=== PATIENT | male | born 1980 | race Hispanic/Latino ===

== ENCOUNTER 2019-03-20 08:10 | Inpatient (IN) | payer BC, SELFPAY ==
[2019-03-20 08:11] VITALS: BMI 30.1
--- NOTE | 2019-03-20 08:30 | ED PDOC ---
Arrival/HPI - General Chief Complaint: Shortness Of Breath Time Seen by Provider: 03/20/19 08:14 - History of Present Illness Narrative History of Present Illness (Text): 03/20/19 08:25 39 m with hx fatty liver presents to the ED with chief complaint of shortness of breath. Dyspnea progressively worse over the past week, exacerbated with ambulation, no cough, no wheezing, +orthopnea. Patient reports intermittent chest pain but absent at this time. Patient also reports abdominal distension, no fever, no abdominal pain, no vomit, no constipation. Past Medical History - Provider Review Nursing Documentation Reviewed: Yes - Infectious Disease Hx of Infectious Diseases: None - Cardiac Hx Cardiac Disorders: Yes Hx Hypertension: Yes - Pulmonary Hx Respiratory Disorders: No - Neurological Hx Neurological Disorder: No - HEENT Hx HEENT Disorder: No - Renal Hx Renal Disorder: No - Endocrine/Metabolic Hx Endocrine Disorders: Yes Hx Diabetes Mellitus Type 2: Yes - Hematological/Oncological Hx Blood Disorders: No - Integumentary Hx Dermatological Disorder: No - Musculoskeletal/Rheumatological Hx Musculoskeletal Disorders: No - Gastrointestinal Hx Gastrointestinal Disorders: Yes Hx Fatty Liver Disease: Yes Hx Pancreatitis: Yes - Genitourinary/Gynecological Hx Genitourinary Disorders: No - Psychiatric Hx Psychophysiologic Disorder: No Hx Substance Use: No - Anesthesia Hx Anesthesia: No Hx Anesthesia Reactions: No Hx Malignant Hyperthermia: No Family/Social History - Physician Review Nursing Documentation Reviewed: Yes Family/Social History: Unknown Family HX Smoking Status: Current Some Days Smoker Hx Alcohol Use: Yes Frequency of alcohol use: Socially Hx Substance Use: No Allergies/Home Meds Allergies/Adverse Reactions: Allergies seasonal Allergy (Uncoded 03/20/19 08:12) RASH Home Medications: Home Meds Medication Instructions Recorded Confirmed Lisinopril [Zestril] 40 mg PO DAILY 03/20/19 03/20/19 MetFORMIN [glucOPHAGE] 1,000 mg PO BID 03/20/19 03/20/19 Omeprazole Magnesium [Prilosec Otc] 20 mg PO DAILY 03/20/19 03/20/19 Review of Systems - Physician Review All systems were reviewed & negative as marked: Yes - Review of Systems Constitutional: absent: Fevers Respiratory: SOB. absent: Cough, Wheezing Cardiovascular: CADE, Orthopnea. absent: Chest Pain (not presently) Gastrointestinal: absent: Abdominal Pain, Constipation, Diarrhea, Nausea, Vomiting, Hematochezia, Hematemesis Genitourinary Male: absent: Dysuria Neurological: absent: Headache, Dizziness, Disequilibrium Physical Exam - Physical Exam Narrative Physical Exam (Text): 03/20/19 08:28 Gen: VS reviewed, alert, well developed, well nourished, nontoxic, mild distress Eye: EOMI, PERRL Neck: no JVD, supple, no adenopathy CV: tachy, regular rhythm, no rubs,no murmur, S1, S2 Pulm: no distress, ?rales in the left lung base, no rhonchi, breath sounds equal Abd: soft, nontender, no guarding, no rebound, no rigidity, +distension, ?hepatomegaly Ext: +pitting edema in the bilateral lower extremities extending up to the thighs Skin: good color, no rash, no cyanosis Psych: responds appropriately to questions, normal affect Neuro: oriented x3, CN2-12 intact grossly, motor intact, sensation intact Vital Signs Temp Pulse Resp BP Pulse Ox 03/20/19 08:10 98.2 F 123 H 20 142/93 H 98 Finger Stick Blood Glucose: 130 Medical Decision Making ED Course and Treatment: 03/20/19 08:30 patient presents with dyspnea, orthopnea, CADE, peripheral edema and abdominal distension. will workup for chf. ddx including but not limited to cirrhosis of the liver, right heart faailure, pulm edema. 03/20/19 08:44 Sinus Tachy @ 122 bpm, nml qrs, nml axis, no acute sttw abn. 03/20/19 09:53 ciwa score at this time = 0 03/20/19 10:[address] garcia to the hospitalist service, patient to be admitted for presumed chf, possible alcoholic cardiomyopathy, at risk for alcohol withdrawal. 03/20/19 11:00 Chest X-ray -- No active disease - Critical Care Critical Care Minutes: 30 minutes - RAD Interpretation Radiology Orders: 03/20/19 08:24 CXR [CHEST TWO VIEWS (PA/LAT)] [RAD] Stat ABDOMEN COMPLETE [US] Stat 03/20/19 08:25 DUPLEX LOWER EXTRM VEIN BILAT [US] Stat Disposition/Present on Arrival - Present on Arrival Any Indicators Present on Arrival: No History of DVT/PE: No History of Uncontrolled Diabetes: No Urinary Catheter: No History of Decub. Ulcer: No History Surgical Site Infection Following: None - Disposition Have Diagnosis and Disposition been Completed?: Yes Diagnosis: Edema, Hypomagnesemia Disposition: HOSPITALIZED Disposition Time: 09:15 Patient Plan: Admission Patient Problems: Current Active Problems Problem Status Onset Edema Acute Hypomagnesemia Acute Condition: GUARDED
[2019-03-20 08:56] LABS: BASO # 0.06 K/mm3 (0.0-2.0); BASO % 0.8 % (0.0-3.0); EOS # 0.2 (0.0-0.7); EOS % 2.8 % (1.5-5.0); LYMPH # 1.7 (1.2-3.4); LYMPH % 22.7 % (22.0-35.0); MEAN CELL VOLUME 79.5 fl (80.0-105.0); MEAN CORPUSCULAR HEMOGLOBIN 24.3 pg (25.0-35.0); MEAN CORPUSCULAR HGB CONC 30.5 g/dl (31.0-37.0); MEAN PLATELET VOLUME 9.1 fl (7.0-11.0); MONO # 0.8 (0.1-0.6); MONO % 10.5 % (1.0-6.0); RBC 3.71 10^6/uL (3.5-6.1); RED CELL DISTRIBUTION WIDTH 15.2 % (11.5-14.5); WHITE BLOOD COUNT 7.5 10^3/uL (4.5-11.0)
[2019-03-20 09:01] LABS: INR 1.25; PARTIAL THROMBOPLASTIN TIME 31.1 Seconds (26.9-38.3); PROTHROMBIN TIME 14.1 SECONDS (9.4-12.5)
[2019-03-20 09:13] LABS: B-TYPE NATRIURETIC PEPTIDE 2060 pg/mL (0-450); TROPONIN I 0.04 ng/mL
[2019-03-20 09:18] LABS: ALB/GLOB RATIO 1.2 (1.1-1.8); ALBUMIN 3.2 g/dL (3.0-4.8); ALT/SGPT 137 U/L (7-56); AST/SGOT 93 U/L (17-59); BLOOD UREA NITROGEN 23 mg/dL (7-21); CALCIUM 6.9 mg/dL (8.4-10.5); GFR NON-AFRICAN AMERICAN > 60
[2019-03-20] MEDS ORDERED: Magnesium Sulfate 2 gm/50 ml 2 GM/50 ML BAG IVPB ONE ×2 (09:21→13:28)
--- NOTE | 2019-03-20 10:55 | RAD ---
Date of service: 03/20/2019 HISTORY: dyspnea, chf COMPARISON: No prior. TECHNIQUE: Chest PA and lateral views FINDINGS: LUNGS: No active pulmonary disease. PLEURA: No significant pleural effusion identified. No pneumothorax apparent. CARDIOVASCULAR: No aortic atherosclerotic calcification present. Mild cardiomegaly no pulmonary vascular congestion. OSSEOUS STRUCTURES: No significant abnormalities. VISUALIZED UPPER ABDOMEN: Normal. OTHER FINDINGS: None. IMPRESSION: No active disease.
[2019-03-20 11:04] LABS: BARBITURATES, UR NEGATIVE (NEGATIVE); BENZODIAZEPINES, UR NEGATIVE (NEGATIVE); OPIATES, UR NEGATIVE (NEGATIVE); PHENCYCLIDINE, UR NEGATIVE (NEGATIVE)
--- NOTE | 2019-03-20 12:03 | US ---
Date of service: 03/20/2019 HISTORY: abd distension COMPARISON: None. TECHNIQUE: Sonographic evaluation of the abdomen. FINDINGS: LIVER: Measures 22.6 cm. Patent portal and hepatic venous systems. Portal venous flow: Hepatopetal. echogenicity of the liver parenchyma. No mass. No intrahepatic bile duct dilatation. GALLBLADDER: Contracted gallbladder accentuating gallbladder wall thickness. Gallstones are not identified COMMON BILE DUCT: Measures 6.3 mm. No stones. No dilatation. PANCREAS: Unremarkable as visualized. No mass. No ductal dilatation. RIGHT KIDNEY: Measures 5.8 x 11.3cm. Normal echogenicity. No calculus, mass, or hydronephrosis. LEFT KIDNEY: Measures 7.4 x 13.9cm. Normal echogenicity. No calculus, mass, or hydronephrosis. SPLEEN: Normal in size and contour. No mass. AORTA: No aneurysmal dilatation. IVC: Unremarkable. OTHER FINDINGS: None. IMPRESSION: Hepatomegaly. No acute findings.
--- NOTE | 2019-03-20 12:19 | CARD ---
APPROVED REPORT Date of service: 03/20/2019 EKG Measurement Heart [id number] <Conclusion> Sinus tachycardia Possible Left atrial enlargement Low voltage QRS Septal infarct, age undetermined Abnormal ECG
[2019-03-20 13:33] LABS: IRON 23 ug/dL (45-180)
[2019-03-20 13:57] LABS: % IRON SATURATION 5 % (20-55); TOTAL IRON BINDING CAPACITY 484 ug/dL (261-462)
--- NOTE | 2019-03-20 14:29 | CP.PCM.HP ---
<Martínez Curry - Last Filed: 03/20/19 16:08> History of Present Illness - History of Present Illness History of Present Illness: History and Physical for Dr. Bob Hospitalist Service CC: SOB, fatigue HPI: 39 year old male with DM2, HTN, history of acute pancreatitis, hx of etoh abuse, and fatty liver who presented to [facility] ED complaining of shortness of breath and lower leg edema for the past week. He reports a two pillow orthopnea, shortness of breath worsened with exerction. He indicates that he has noticed some abdominal distenion. Patient reports he is compliant with his medication. Associated symptoms include lower extremity edema, weight gain and intermittent sharp shooting pains in his feet bilaterally. Patient does have history of heavy alcohol abuse. He indicates he has been able to control his drinking and that hi s last drink was five days prior to presentation. Review of labs does show an ETOH level of 34. He denies previous hospitalization for ETOH withdrawal or development of delerium tremens. He denies cough, productive cough, fever, nausea, vomiting, sharp stabbing chest pain, chest pressure, diarrhea, constipation, urinary complaints, neurological deficits. Patient denies black stools or bright red blood per rectum. ED Course: Patient evaluated with CXR showing no active disease, abominal US showing hepatomegaly, EKG showing sinus tachycardia, bloodwork indicating anemi a, hypomagnesium for which he was treated with 2gm MgSulfate, elevated BNP and given IV lasix 60mg with good urine output. PMH: DM2, HTN, Fatty Liver, Hx of Pancreatitis episode, Hx of ETOH abuse PSH: Denies SocHx: Tobacco: 0.5 PPD, ETOH: Active drinker, ID: Denies ALL: Seasonal, NKDA Meds: -Lisinopril 40mg daily -Metformin 1000mg BID Present on Admission - Present on Admission Any Indicators Present on Admission: No Review of Systems - Review of Systems All systems: reviewed and no additional remarkable complaints except (as mentioned in HPI) Past Patient History - Infectious Disease Hx of Infectious Diseases: None - Past Social History Smoking Status: Current Some Days Smoker - CARDIAC Hx Cardiac Disorders: Yes Hx Hypertension: Yes Hx Peripheral Edema: Yes (ble +2 pitting) - PULMONARY Hx Respiratory Disorders: No - NEUROLOGICAL Hx Neurological Disorder: No - HEENT Hx HEENT Problems: No - RENAL Hx Chronic Kidney Disease: No - ENDOCRINE/METABOLIC Hx Endocrine Disorders: Yes Hx Diabetes Mellitus Type 2: Yes (dx age 31) - HEMATOLOGICAL/ONCOLOGICAL Hx Blood Disorders: No - INTEGUMENTARY Hx Dermatological Problems: Yes Other/Comment: red raised itchy rash to abd x 2 days,multiple cuts, red thrasher, burn thrasher various stages 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, redness to both knees work related, red horizontal thrasher to bend in both ankles - MUSCULOSKELETAL/RHEUMATOLOGICAL Hx Musculoskeletal Disorders: No - GASTROINTESTINAL Hx Gastrointestinal Disorders: Yes (fatty liver, ulcerative colitis, obese) Hx Gastroesophageal Reflux: Yes Hx Pancreatitis: Yes - GENITOURINARY/GYNECOLOGICAL Hx Genitourinary Disorders: No - PSYCHIATRIC Hx Psychophysiologic Disorder: No - SURGICAL HISTORY Hx Surgeries: No - ANESTHESIA Hx Anesthesia: No Hx Anesthesia Reactions: No Hx Malignant Hyperthermia: No Meds Allergies/Adverse Reactions: Allergies Allergy/AdvReac Type Severity Reaction Status Date / Time seasonal Allergy RASH Uncoded 03/20/19 08:12 Physical Exam - Constitutional Appears: Non-toxic - Head Exam Head Exam: ATRAUMATIC, NORMAL INSPECTION, NORMOCEPHALIC - Eye Exam Eye Exam: EOMI, PERRL - ENT Exam ENT Exam: Mucous Membranes Moist - Neck Exam Neck exam: Positive for: Full Rom - Respiratory Exam Respiratory Exam: Clear to Auscultation Bilateral, NORMAL BREATHING PATTERN. absent: Rales, Rhonchi, Wheezes - Cardiovascular Exam Cardiovascular Exam: Tachycardia, REGULAR RHYTHM, +S1, +S2 - GI/Abdominal Exam GI & Abdominal Exam: Distended (absent fluid wave), Organomegaly (hepatomegaly ), Soft. absent: Guarding, Hernia, Rigid, Tenderness Additional comments: stretch thrasher bilateerally on lower right and left quadrant, presence of red urticaria rash, absent caput medusa, fluid wave, telangiaectasias - Extremities Exam Extremities exam: Positive for: pedal edema (+2 to thighs biltaerally ) - Neurological Exam Neurological exam: Alert, CN II-XII Intact, Normal Gait, Oriented x3, Reflexes Normal Additional comments: motor and sensory grossly intact - Psychiatric Exam Psychiatric exam: Normal Affect, Normal Mood - Skin Skin Exam: Dry, Intact, Rash, Urticaria (abdomen ) Results - Vital Signs Recent Vital Signs: Last Vital Signs Temp 98.2 F 03/20/19 08:10 Pulse 121 H 03/20/19 10:59 Resp 18 03/20/19 10:59 BP 135/91 H 03/20/19 10:59 Pulse Ox 100 03/20/19 10:59 - Labs Result Diagrams: 03/20/19 08:30 03/20/19 08:30 Labs: Laboratory Results - last 24 hr 03/20/19 03/20/19 03/20/19 08:14 08:30 08:30 WBC RBC Hgb Hct MCV MCH MCHC RDW Plt Count MPV Neut % (Auto) Lymph % (Auto) Hodgeman % (Auto) Eos % (Auto) Baso % (Auto) Lymph # (Auto) Hodgeman # (Auto) Eos # (Auto) Baso # (Auto) Absolute Neuts (auto) PT INR APTT Sodium 138 Potassium 4.4 Chloride 106 Carbon Dioxide 20 L Anion Gap 16 BUN 23 H Creatinine 1.1 Est GFR ( Amer) > 60 Est GFR (Non-Af Amer) > 60 POC Glucose (mg/dL) 130 H Random Glucose 133 H Calcium 6.9 L* Phosphorus Magnesium 0.7 L* Iron TIBC % Saturation Total Bilirubin 0.3 AST 93 H ALT 137 H Alkaline Phosphatase 144 H Troponin I 0.04 NT-Pro-B Natriuret Pep 2060 H Total Protein 5.7 L Albumin 3.2 Globulin 2.6 Albumin/Globulin Ratio 1.2 TSH 3rd Generation 1.65 Urine Opiates Screen Urine Methadone Screen Ur Barbiturates Screen Ur Phencyclidine Scrn Ur Amphetamines Screen U Benzodiazepines Scrn U Oth Cocaine Metabols U Cannabinoids Screen Alcohol, Quantitative 32 H 03/20/19 03/20/19 03/20/19 08:30 08:30 08:36 WBC 7.5 RBC 3.71 Hgb 9.0 L Hct 29.5 L MCV 79.5 L MCH 24.3 L MCHC 30.5 L RDW 15.2 H Plt Count 349 MPV 9.1 Neut % (Auto) 63.2 Lymph % (Auto) 22.7 Hodgeman % (Auto) 10.5 H Eos % (Auto) 2.8 Baso % (Auto) 0.8 Lymph # (Auto) 1.7 Hodgeman # (Auto) 0.8 H Eos # (Auto) 0.2 Baso # (Auto) 0.06 Absolute Neuts (auto) 4.71 PT 14.1 H INR 1.25 APTT 31.1 Sodium Potassium Chloride Carbon Dioxide Anion Gap BUN Creatinine Est GFR ( Amer) Est GFR (Non-Af Amer) POC Glucose (mg/dL) Random Glucose Calcium Phosphorus Magnesium Iron TIBC % Saturation Total Bilirubin AST ALT Alkaline Phosphatase Troponin I NT-Pro-B Natriuret Pep Total Protein Albumin Globulin Albumin/Globulin Ratio TSH 3rd Generation Urine Opiates Screen Negative Urine Methadone Screen Negative Ur Barbiturates Screen Negative Ur Phencyclidine Scrn Negative Ur Amphetamines Screen Negative U Benzodiazepines Scrn Negative U Oth Cocaine Metabols Negative U Cannabinoids Screen Positive H Alcohol, Quantitative 03/20/19 03/20/19 03/20/19 09:23 12:30 12:30 WBC RBC Hgb Hct MCV MCH MCHC RDW Plt Count MPV Neut % (Auto) Lymph % (Auto) Hodgeman % (Auto) Eos % (Auto) Baso % (Auto) Lymph # (Auto) Hodgeman # (Auto) Eos # (Auto) Baso # (Auto) Absolute Neuts (auto) PT INR APTT Sodium Potassium Chloride Carbon Dioxide Anion Gap BUN Creatinine Est GFR ( Amer) Est GFR (Non-Af Amer) POC Glucose (mg/dL) Random Glucose Calcium Phosphorus 5.1 H 5.1 H Magnesium 1.0 L* Iron 23 L TIBC 484 H % Saturation 5 L Total Bilirubin AST ALT Alkaline Phosphatase Troponin I NT-Pro-B Natriuret Pep Total Protein Albumin Globulin Albumin/Globulin Ratio TSH 3rd Generation Urine Opiates Screen Urine Methadone Screen Ur Barbiturates Screen Ur Phencyclidine Scrn Ur Amphetamines Screen U Benzodiazepines Scrn U Oth Cocaine Metabols U Cannabinoids Screen Alcohol, Quantitative 03/20/19 12:57 WBC RBC Hgb Hct MCV MCH MCHC RDW Plt Count MPV Neut % (Auto) Lymph % (Auto) Hodgeman % (Auto) Eos % (Auto) Baso % (Auto) Lymph # (Auto) Hodgeman # (Auto) Eos # (Auto) Baso # (Auto) Absolute Neuts (auto) PT INR APTT Sodium Potassium Chloride Carbon Dioxide Anion Gap BUN Creatinine Est GFR ( Amer) Est GFR (Non-Af Amer) POC Glucose (mg/dL) 141 H Random Glucose Calcium Phosphorus Magnesium Iron TIBC % Saturation Total Bilirubin AST ALT Alkaline Phosphatase Troponin I NT-Pro-B Natriuret Pep Total Protein Albumin Globulin Albumin/Globulin Ratio TSH 3rd Generation Urine Opiates Screen Urine Methadone Screen Ur Barbiturates Screen Ur Phencyclidine Scrn Ur Amphetamines Screen U Benzodiazepines Scrn U Oth Cocaine Metabols U Cannabinoids Screen Alcohol, Quantitative Assessment & Plan - Assessment and Plan (Free Text) Assessment: 39 year old male with DM2, HTN, history of acute pancreatitis, hx of etoh abuse, and fatty liver who presented to [facility] ED complaining of shortness of breath and lower leg edema for the past week. Patient to be admitted for ?CHF exacerbation and suspected alcohol withdrawal.Patient to be monitored and treated with IV lasix for diuresis. Cardiology to be consulted, will follow up recs. 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 ischemic disease vs. CHF vs. symptomatic anemia vs. - BNP elevated, CXR showing mild cardiomegaly without significant effusion, EKG sinus tachycardia without ST elevation/depression - Echocardiogram pending, Trending troponins - Cardiology consulted, appreciate recommendations - IV lasix 60mg given in ED, Start IV lasix 40mg Daily tomorrow AM - Monitor I/O, Daily weights Elevated ETOH with concern for etoh withdrawal - ETOH on blood work shown to be 34 - Slight tremors of the hand noted on exam - CIWA, Ativan 1mg IVP Q6H prn Anemia, Microcytic - Etiology Likely secondary to anemia of chronic disease vs. iron deficiency anemia - Monitor H/H with routine CBC - Iron panel, VB12, Folate Hypomagnesium - Etiology: Alcohol abuse vs. chronic pancreatitis vs. IBD vs. hyperthyroidism vs. hyperaldo - Magnesium sulfate 2gm given in ED - Repeat level Hypocalcemia - Corrected calcium is 7.5 - Continue to monitor GI/DVT PPX - Pepcid - Heparin Patient seen, case and plan discussed with attending, Dr. Bob <Misael Bob - Last Filed: 03/20/19 16:35> Results - Vital Signs Recent Vital Signs: Last Vital Signs Temp 98.2 F 03/20/19 08:10 Pulse 121 H 03/20/19 14:05 Resp 20 03/20/19 14:05 BP 135/91 H 03/20/19 10:59 Pulse Ox 100 03/20/19 10:59 - Labs Result Diagrams: 03/20/19 08:30 03/20/19 08:30 Labs: Laboratory Results - last 24 hr 03/20/19 03/20/19 03/20/19 08:14 08:30 08:30 WBC RBC Hgb Hct MCV MCH MCHC RDW Plt Count MPV Neut % (Auto) Lymph % (Auto) Hodgeman % (Auto) Eos % (Auto) Baso % (Auto) Lymph # (Auto) Hodgeman # (Auto) Eos # (Auto) Baso # (Auto) Absolute Neuts (auto) PT INR APTT Sodium 138 Potassium 4.4 Chloride 106 Carbon Dioxide 20 L Anion Gap 16 BUN 23 H Creatinine 1.1 Est GFR ( Amer) > 60 Est GFR (Non-Af Amer) > 60 POC Glucose (mg/dL) 130 H Random Glucose 133 H Calcium 6.9 L* Phosphorus Magnesium 0.7 L* Iron TIBC % Saturation Total Bilirubin 0.3 AST 93 H ALT 137 H Alkaline Phosphatase 144 H Troponin I 0.04 NT-Pro-B Natriuret Pep 2060 H Total Protein 5.7 L Albumin 3.2 Globulin 2.6 Albumin/Globulin Ratio 1.2 TSH 3rd Generation 1.65 Urine Opiates Screen Urine Methadone Screen Ur Barbiturates Screen Ur Phencyclidine Scrn Ur Amphetamines Screen U Benzodiazepines Scrn U Oth Cocaine Metabols U Cannabinoids Screen Alcohol, Quantitative 32 H 03/20/19 03/20/19 03/20/19 08:30 08:30 08:36 WBC 7.5 RBC 3.71 Hgb 9.0 L Hct 29.5 L MCV 79.5 L MCH 24.3 L MCHC 30.5 L RDW 15.2 H Plt Count 349 MPV 9.1 Neut % (Auto) 63.2 Lymph % (Auto) 22.7 Hodgeman % (Auto) 10.5 H Eos % (Auto) 2.8 Baso % (Auto) 0.8 Lymph # (Auto) 1.7 Hodgeman # (Auto) 0.8 H Eos # (Auto) 0.2 Baso # (Auto) 0.06 Absolute Neuts (auto) 4.71 PT 14.1 H INR 1.25 APTT 31.1 Sodium Potassium Chloride Carbon Dioxide Anion Gap BUN Creatinine Est GFR ( Amer) Est GFR (Non-Af Amer) POC Glucose (mg/dL) Random Glucose Calcium Phosphorus Magnesium Iron TIBC % Saturation Total Bilirubin AST ALT Alkaline Phosphatase Troponin I NT-Pro-B Natriuret Pep Total Protein Albumin Globulin Albumin/Globulin Ratio TSH 3rd Generation Urine Opiates Screen Negative Urine Methadone Screen Negative Ur Barbiturates Screen Negative Ur Phencyclidine Scrn Negative Ur Amphetamines Screen Negative U Benzodiazepines Scrn Negative U Oth Cocaine Metabols Negative U Cannabinoids Screen Positive H Alcohol, Quantitative 03/20/19 03/20/19 03/20/19 09:23 12:30 12:30 WBC RBC Hgb Hct MCV MCH MCHC RDW Plt Count MPV Neut % (Auto) Lymph % (Auto) Hodgeman % (Auto) Eos % (Auto) Baso % (Auto) Lymph # (Auto) Hodgeman # (Auto) Eos # (Auto) Baso # (Auto) Absolute Neuts (auto) PT INR APTT Sodium Potassium Chloride Carbon Dioxide Anion Gap BUN Creatinine Est GFR ( Amer) Est GFR (Non-Af Amer) POC Glucose (mg/dL) Random Glucose Calcium Phosphorus 5.1 H 5.1 H Magnesium 1.0 L* Iron 23 L TIBC 484 H % Saturation 5 L Total Bilirubin AST ALT Alkaline Phosphatase Troponin I NT-Pro-B Natriuret Pep Total Protein Albumin Globulin Albumin/Globulin Ratio TSH 3rd Generation Urine Opiates Screen Urine Methadone Screen Ur Barbiturates Screen Ur Phencyclidine Scrn Ur Amphetamines Screen U Benzodiazepines Scrn U Oth Cocaine Metabols U Cannabinoids Screen Alcohol, Quantitative 03/20/19 03/20/19 12:57 14:00 WBC RBC Hgb Hct MCV MCH MCHC RDW Plt Count MPV Neut % (Auto) Lymph % (Auto) Hodgeman % (Auto) Eos % (Auto) Baso % (Auto) Lymph # (Auto) Hodgeman # (Auto) Eos # (Auto) Baso # (Auto) Absolute Neuts (auto) PT INR APTT Sodium Potassium Chloride Carbon Dioxide Anion Gap BUN Creatinine Est GFR ( Amer) Est GFR (Non-Af Amer) POC Glucose (mg/dL) 141 H Random Glucose Calcium Phosphorus Magnesium Iron TIBC % Saturation Total Bilirubin AST ALT Alkaline Phosphatase Troponin I 0.03 D NT-Pro-B Natriuret Pep Total Protein Albumin Globulin Albumin/Globulin Ratio TSH 3rd Generation Urine Opiates Screen Urine Methadone Screen Ur Barbiturates Screen Ur Phencyclidine Scrn Ur Amphetamines Screen U Benzodiazepines Scrn U Oth Cocaine Metabols U Cannabinoids Screen Alcohol, Quantitative Attending/Attestation - Attestation I have personally seen and examined this patient.: Yes I have fully participated in the care of the patient.: Yes I have reviewed all pertinent clinical information: Yes Notes (Text): 03/20/19 39 year old female male with past medical history of alcohol abuse, diabetes, and hypertension who presents with complaint of shortness of breath, orthopnea and lower extremity edema. Found to have elevated pbnp and mild cardiomegaly on chest xray. Will start on iv lasix and obtain echocardiogram. Cardiology eval uation is requested. Counselled on alcohol cessation. Continue with multivitamin, folic acid and thiamine. Ativan prn in case of withdrawal symptoms. Elevated LFTs likely secondary to ETOH abuse and fatty liver. Continue to monitor closely. Anemia workup ordered for anemia. Will replete and repeat magnesium. Misael Bob MD Hospitalist.
[2019-03-20] MEDS ORDERED: Pneumococcal 23-Valent Vaccine IM ONE (14:30)
[2019-03-20 17:16] LABS: FERRITIN 12.3 ng/mL
[2019-03-20] MEDS: Insulin Lispro (humaLOG) LOW Coverage SC SCH ×2 (17:32→22:36)
--- NOTE | 2019-03-20 17:45 | CARD ---
APPROVED REPORT Date of service: 03/20/2019 EXAM: Two-dimensional and M-mode echocardiogram with Doppler and color Doppler. INDICATION Cardiomyopathy Congestive Heart Failure 2D DIMENSIONS Left Atrium (2D)5.0 (1.6-4.0cm)IVSd1.3 (0.7-1.1cm) LVDd5.6 (3.9-5.9cm)PWd1.4 (0.7-1.1cm) LVDs5.1 (2.5-4.0cm)FS (%) 9.4 % LVEF (%)20.6 (>50%) M-Mode DIMENSIONS Aortic Root3.30 (2.2-3.7cm)Aortic Cusp Exc.1.80 (1.5-2.0cm) Aortic Valve AoV Peak Cfqeypgn094.0cm/Jayden Peak GR.9mmHg Mitral Valve E/A ratio0.0 TDI E/Lateral E'0.0E/Medial E'0.0 Pulmonary Valve PV Peak Wefqmrga63.3cm/sPV Peak Grad.1mmHg Tricuspid Valve TR Peak [id number] [id number] Peak Gr.29mmHg [id number] LEFT VENTRICLE The Left Ventricle is mildly dilated. There is mild concentric left ventricular hypertrophy. The ejection fraction is severely impaired. There is global hypokinesis of the left ventricle. RIGHT VENTRICLE The right ventricle is moderately dilated. Systolic function is severely reduced. ATRIA The left atrium is severely dilated. The right atrium is moderately dilated. The interatrial septum is intact with no evidence for an atrial septal defect. AORTIC VALVE The aortic valve is normal in structure. No aortic regurgitation is present. There is no aortic valvular stenosis. MITRAL VALVE The reduced mitral leaflet separation suggests decreased flow through the mitral valve and poor cardiac output. Mitral regurgitation is mild. TRICUSPID VALVE The tricuspid valve is normal in structure. The tricuspid valve is normal in structure. There is mild tricuspid regurgitation. PULMONIC VALVE The pulmonary valve is normal in structure. GREAT VESSELS The aortic root is normal in size. The IVC is normal in size and collapses >50% with inspiration. PERICARDIAL EFFUSION There is no pleural effusion. There is a small pericardial effusion. <Conclusion> Four chamber enlargement. Mild concentric LVH. Severe global LV hypokinesis. Overall EF 15-20%. Mild mitral and tricuspid regurgitation. Small pericardial effusion noted.
[2019-03-20 17:46] LABS: FOLATE 14.4 ng/mL
[2019-03-21 06:53] LABS: BASO # 0.05 K/mm3 (0.0-2.0); BASO % 0.7 % (0.0-3.0); EOS # 0.2 (0.0-0.7); EOS % 2.5 % (1.5-5.0); HEMOGLOBIN 9.5 g/dL (14.0-18.0); LYMPH # 1.7 (1.2-3.4); LYMPH % 22.1 % (22.0-35.0); MEAN CELL VOLUME 79.8 fl (80.0-105.0); MEAN CORPUSCULAR HEMOGLOBIN 23.9 pg (25.0-35.0); MEAN PLATELET VOLUME 9.5 fl (7.0-11.0); MONO # 0.8 (0.1-0.6); MONO % 9.8 % (1.0-6.0); RBC 3.97 10^6/uL (3.5-6.1); RED CELL DISTRIBUTION WIDTH 15.2 % (11.5-14.5); WHITE BLOOD COUNT 7.7 10^3/uL (4.5-11.0)
[2019-03-21 07:15] LABS: ALB/GLOB RATIO 1.3 (1.1-1.8); ALBUMIN 3.3 g/dL (3.0-4.8); ALT/SGPT 134 U/L (7-56); AST/SGOT 96 U/L (17-59); BLOOD UREA NITROGEN 28 mg/dL (7-21); CALCIUM 7.4 mg/dL (8.4-10.5); GFR NON-AFRICAN AMERICAN > 60; HDL CHOLESTEROL 23 mg/dL (29-60); LDL CHOLESTEROL 81 mg/dL (0-129)
[2019-03-21] MEDS: Insulin Lispro (humaLOG) LOW Coverage SC SCH ×4 (08:37→23:14)
[2019-03-21] MEDS: Multivitamin With Minerals Tab PO SCH (08:37)
--- NOTE | 2019-03-21 08:57 | CP.PCM.PN ---
<Lina Rivera - Last Filed: 03/21/19 14:10> Subjective - Date & Time of Evaluation Date of Evaluation: 03/21/19 Time of Evaluation: 08:55 - Subjective Subjective: Lina Rivera, PGY-1, Internal Medicine Progress Note for Dr. Bob Patient seen and evaluated at bedside. Patient had no acute overnight events. Patient reports improved shortness of breath, abdominal distension, and bilateral lower extremity edema. 12-point ROS was unremarkable except for what was mentioned above. Objective - Vital Signs/Intake and Output Vital Signs (last 24 hours): Temp Pulse Resp BP Pulse Ox 98.1 F 109 H 22 127/90 100 03/21/19 06:00 03/21/19 06:00 03/21/19 06:00 03/21/19 06:00 03/21/19 06:00 Intake and Output: 03/21/19 03/21/19 06:59 18:59 Intake Total 956 Balance 956 - Medications Medications: Current Medications Carvedilol (Coreg) 6.25 mg PO BID [facility] Enoxaparin Sodium (Lovenox) 40 mg SC DAILY [facility]; Protocol Famotidine (Pepcid) 20 mg PO 1000,2200 [facility] Last Admin: 03/20/19 22:38 Dose: 20 mg Ferrous Sulfate (Feosol) 324 mg PO TID [facility] Folic Acid (Folic Acid) 1 mg PO DAILY [facility] Furosemide (Lasix) 40 mg IVP DAILY [facility] Insulin Human Lispro (Humalog Low) 0 units SC ACHS [facility]; Protocol Last Admin: 03/21/19 08:37 Dose: 1 units Lisinopril (Zestril) 5 mg PO DAILY [facility] Lorazepam (Ativan) 1 mg IVP Q4H PRN; Protocol PRN Reason: Anxiety Last Admin: 03/20/19 22:38 Dose: 1 mg Magnesium Oxide (Mag-Ox) 400 mg PO BID [facility] Stop: 03/21/19 18:01 Multivitamins/Minerals (Therapeutic-M Tab) 1 tab PO 0800 [facility] Last Admin: 03/21/19 08:37 Dose: 1 tab Nicotine (Nicoderm Cq) 1 patch TD DAILY [facility] Last Admin: 03/20/19 15:02 Dose: 1 patch Thiamine HCl (Vitamin B1 Tab) 100 mg PO DAILY [facility] - Labs Labs: 03/21/19 06:20 03/21/19 06:20 PT 14.1 SECONDS (9.4-12.5) H 03/20/19 08:30 INR 1.25 03/20/19 08:30 APTT 31.1 Seconds (26.9-38.3) 03/20/19 08:30 - Constitutional Appears: Well, Non-toxic, No Acute Distress - Head Exam Head Exam: ATRAUMATIC, NORMAL INSPECTION, NORMOCEPHALIC - Eye Exam Eye Exam: EOMI, PERRL - ENT Exam ENT Exam: Mucous Membranes Moist - Respiratory Exam Respiratory Exam: Wheezes (mild) Additional comments: distant breath sounds - GI/Abdominal Exam GI & Abdominal Exam: Distended, Soft, Normal Bowel Sounds. absent: Firm, Guarding, Rigid, Tenderness - Extremities Exam Extremities Exam: Full ROM, Normal Capillary Refill, Normal Inspection. absent: Pedal Edema - Neurological Exam Neurological Exam: Alert, Awake, CN II-XII Intact, Oriented x3 - Psychiatric Exam Psychiatric exam: Normal Affect, Normal Mood - Skin Skin Exam: Dry, Intact Additional comments: full body rash Assessment and Plan - Assessment and Plan (Free Text) Assessment: 39 year old male with past medical history diabetes mellitus type II, hypertension, history of acute pancreatitis, history of alcohol abuse, and fatty liver presented with shortness of breath and lower extremity edema for one week. Patient was admitted for congestive heart failure and suspected alcohol withdrawal. Patient was diuresed in the emergency department with improvement in symptoms Plan: Systolic Congestive Heart Failure Exacerbation -Echocardiogram 03/20: LVEF 15-20%, global LV hypokinesis, mild concentric LVH, small pericardial effusion -Currently has no chest pain at this time, so will not start NSAID for pericardial effusion -Elevated BNP on admission with CXR showing mild cardiomegaly without significant effusion -Tropx3: <0.05 -Started coreg 6.25 mg BID, zestril 5 mg daily, and spirinolactone 25 mg BID -Increased lasix to 40 mg BID IV -Daily weight -Monitor I and Os Sinus tachycardia -Confirmed by EKG on admission -Continue coreg 6.25 mg BID Alcohol abuse with concern for alcohol withdrawal -Alc level: 32 on admission -CIWA protocol initiated -CIWAs have been 0-1 today -Continue ativan 1 mg Q4 PRN for withdrawal symptoms -Continue with MVI, thiamine, and folate Type II Diabetes -HgbA1c: 10.1 -Continue with low SSI -Accuchecks ACHS Microcytic anemia -Iron studies show low % saturation, thus indicating iron deficiency anemia. -Patient reports having bloody bowel movements in the past -Started patient on ferrous sulfate 324 mg TID -Patient will follow up outpatient for endoscopy with Dr. Palafox Hypomagnesia -Replete as needed Hyperkalemia -Mild at this time -Will continue to monitor Hypocalcemia -Replete as necessary Tobacco abuse -Continue with nicotine patch Elevated LFTs -Will evaluate with abdominal ultrasound for changes in the liver. GI prophylaxis: pepcid 20 mg BID DVT prophylaxis: lovenox 40 mg Patient plan discussed with Dr. Bob. <Misael Bob - Last Filed: 03/21/19 15:04> Objective - Vital Signs/Intake and Output Vital Signs (last 24 hours): Temp Pulse Resp BP Pulse Ox 97.1 F L 102 H 19 126/88 100 03/21/19 12:00 03/21/19 12:00 03/21/19 12:00 03/21/19 12:00 03/21/19 06:00 Intake and Output: 03/21/19 03/21/19 06:59 18:59 Intake Total 956 Balance 956 - Medications Medications: Current Medications Carvedilol (Coreg) 6.25 mg PO BID [facility] Last Admin: 03/21/19 10:34 Dose: 6.25 mg Enoxaparin Sodium (Lovenox) 40 mg SC DAILY [facility]; Protocol Last Admin: 03/21/19 10:37 Dose: 40 mg Famotidine (Pepcid) 20 mg PO 1000,2200 [facility] Last Admin: 03/21/19 10:37 Dose: 20 mg Ferrous Sulfate (Feosol) 324 mg PO TID [facility] Last Admin: 03/21/19 13:10 Dose: 324 mg Folic Acid (Folic Acid) 1 mg PO DAILY [facility] Last Admin: 03/21/19 10:37 Dose: 1 mg Furosemide (Lasix) 40 mg IVP BID [facility] Insulin Human Lispro (Humalog Low) 0 units SC ACHS [facility]; Protocol Last Admin: 03/21/19 12:42 Dose: 3 units Lisinopril (Zestril) 5 mg PO DAILY [facility] Last Admin: 05/10/19 10:35 Dose: 5 mg Lorazepam (Ativan) 1 mg IVP Q4H PRN; Protocol PRN Reason: Anxiety Last Admin: 03/20/19 22:38 Dose: 1 mg Magnesium Oxide (Mag-Ox) 400 mg PO BID [facility] Stop: 03/21/19 18:01 Last Admin: 03/21/19 10:37 Dose: 400 mg Multivitamins/Minerals (Therapeutic-M Tab) 1 tab PO 0800 [facility] Last Admin: 03/21/19 08:37 Dose: 1 tab Nicotine (Nicoderm Cq) 1 patch TD DAILY [facility] Last Admin: 03/21/19 10:36 Dose: 1 patch Spironolactone (Aldactone) 25 mg PO BID [facility] Thiamine HCl (Vitamin B1 Tab) 100 mg PO DAILY [facility] Last Admin: 03/21/19 10:37 Dose: 100 mg - Labs Labs: 03/21/19 06:20 03/21/19 14:30 PT 14.1 SECONDS (9.4-12.5) H 03/20/19 08:30 INR 1.25 03/20/19 08:30 APTT 31.1 Seconds (26.9-38.3) 03/20/19 08:30 Attending/Attestation - Attestation I have personally seen and examined this patient.: Yes I have fully participated in the care of the patient.: Yes I have reviewed all pertinent clinical information, including history, physical exam and plan: Yes Notes (Text): 03/21/19 14:59 39 year old female male with past medical history of alcohol abuse, diabetes, and hypertension who presented with complaint of shortness of breath, orthopnea and lower extremity edema. Found to have elevated pbnp and mild cardiomegaly on chest xray. Started on iv lasix and metoprolol. Echocardiogram was reviewed which showed 15-20% EF, global LV hypokinesis. Cardiology is following and has increased lasix to bid and added spironalactone. Plan for possible cath next week as per cardiology. Counselled on alcohol cessation. Continue with multivitamin, folic acid and thiamine. Ativan prn in case of withdrawal symptoms. Elevated LFTs likely secondary to ETOH abuse and fatty liver. Continue to monitor closely. Anemia workup consistent with iron deficiency anemia. He has outpatient GI follow up for EGD/colonoscopy. A1c is 10.1. Will discuss with patient regarding starting insulin regimen. Will replete and repeat magnesium. Misael Bob MD Hospitalist.
[2019-03-21] MEDS: Enoxaparin 40 mg Syringe SC SCH (10:37)
[2019-03-21] MEDS: Magnesium Oxide 400 mg Tab UD PO SCH ×2 (10:37→17:59)
[2019-03-21 14:47] LABS: BLOOD UREA NITROGEN 27 mg/dL (7-21); CALCIUM 7.6 mg/dL (8.4-10.5); GFR NON-AFRICAN AMERICAN > 60
[2019-03-21] MEDS: Insulin Lispro 1 UNITS/0.01 ML SC SCH (19:07)
--- NOTE | 2019-03-21 21:39 | CON ---
DATE: 03/21/2019 REQUESTING PHYSICIAN: Dr. Bob. REASON FOR CONSULTATION; Congestive heart failure. HISTORY OF PRESENT ILLNESS: This is a 39-year-old man with a longstanding history of alcohol and tobacco abuse, who presented to the emergency room with complaints of worsening dyspnea and leg edema for over a week. He has been a heavy drinker for many years and had stopped drinking several days prior to admission. Despite this, his alcohol level was 34 on admission. He has been bothered by cough, but he felt it was congestion. He was seen by physician on the outside and given dilator and antibiotics with no significant improvement. Upon admission, he had evidence of congestive heart failure. He does have a history of hypertension and longstanding diabetes mellitus. He was admitted in the past for acute alcoholic pancreatitis. Upon admission, he was noted to be anemic as well as severely hypomagnesemic. He has had prior workup that showed evidence of a fatty liver. CURRENT MEDICATIONS: Include Ativan p.r.n., carvedilol 6.25 mg b.i.d., ferrous sulfate, folic acid, Lasix 40 mg IV daily, Lovenox, magnesium oxide, Nicoderm patch, Pepcid, and Zestril 5 mg everyday. ALLERGIES: NO DRUG ALLERGIES NOTED. FAMILY HISTORY: Unremarkable for premature heart disease. SOCIAL HISTORY: He is a smoker of at least half pack per day as well as heavy alcohol use, although he states this is less than in the past. REVIEW OF SYSTEMS: A 12-point review of systems is notable for the problems mentioned above. 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 He denies any PND, but has had some orthopnea lately. PHYSICAL EXAMINATION: GENERAL: He is a middle-aged male, who appears comfortable at rest. VITAL SIGNS: Blood pressure is 132/96 with a pulse of 120, respirations are 14, and he is afebrile. HEENT: Normocephalic and atraumatic. NECK: Supple. JVD is present at 60 degrees. Carotid upstrokes 1+ bilaterally. CHEST: Reveals bilateral scattered rhonchi with diminished breath sounds at the bases. HEART: PMI displaced laterally with soft tones noted. ABDOMEN: Soft and protuberant. Liver edge is palpable and feels hard. EXTREMITIES: A 2+ edema to his knees. SKIN: Warm and dry. PSYCHIATRIC: Feels mildly anxious, but otherwise normal in affect. NEUROLOGIC: Alert and oriented x3. No gross motor or sensory deficits notable. DIAGNOSTIC DATA: Potassium 5.2, BUN and creatinine 28 and 1.1. White count of 7.7, hemoglobin and hematocrit 9.5 and 31.7 with a platelet count of 354,000, and MCV is 79.8. Magnesium level is 1.3 and had been 0.7 upon admission. Glucose is 177. BNP is 2060. AST and ALT is 93 and 137. Troponin has been negative. Cholesterol is 111 with an HDL of 23 and LDL of 81. B12 and folate levels are normal. Urine was positive for cannabinoids as well. Electrocardiogram reveals sinus tachycardia with possible left atrial abnormality, low voltage QRS complex as well as possible prior septal infarct pattern. His echocardiogram was reviewed and this revealed 4-chamber enlargement with mild concentric left ventricular hypertrophy, severe global LV hypokinesis with global ejection fraction of 15% to 20%, mild mitral and tricuspid regurgitation were noted and small pericardial effusion is present. Chest x-ray reveals an enlarged cardiac silhouette with increased vascular markings. IMPRESSION: 1. 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 2. History of tobacco abuse. 3. History of hypertension and diabetes. 4. Probable alcoholic liver disease. 5. Anemia, workup is pending. 6. Rest of the problems as noted. RECOMMENDATIONS: Carvedilol will be continued and dose increased as tolerated. IV Lasix will be intensified and spironolactone will be added to his regimen as well. JSOE inhibitor can be continued for now as well as his renal function and potassium levels are stable and eventual right and left heart catheterization will be planned to exclude significant coronary artery disease is a contributing factor; however, this is more likely due to an alcohol-induced cardiomyopathy. The need for tight control of risk factors, smoking abstinence, and abstinence from all alcohol intake was discussed at length with the patient. Intake and output will be monitored and renal function monitored carefully as well. Further recommendations will be based upon his clinical course. Thank you for this consultation. Ricardo Daily MD [facility] # [id number] YANDEL
[2019-03-21] MEDS ORDERED: Insulin Detemir 100 units/ml Vial (Levemir) SC SCH (22:00)
[2019-03-22] MEDS: Insulin Lispro (humaLOG) LOW Coverage SC SCH ×4 (08:00→22:13)
[2019-03-22 08:05] LABS: BASO # 0.09 K/mm3 (0.0-2.0); EOS # 0.2 (0.0-0.7); EOS % 2.4 % (1.5-5.0); HEMOGLOBIN 10.2 g/dL (14.0-18.0); LYMPH # 2.3 (1.2-3.4); MEAN CELL VOLUME 79.7 fl (80.0-105.0); MEAN CORPUSCULAR HEMOGLOBIN 24.1 pg (25.0-35.0); MEAN CORPUSCULAR HGB CONC 30.2 g/dl (31.0-37.0); MONO # 0.6 (0.1-0.6); MONO % 6.9 % (1.0-6.0); RBC 4.24 10^6/uL (3.5-6.1); RED CELL DISTRIBUTION WIDTH 15.3 % (11.5-14.5); WHITE BLOOD COUNT 8.7 10^3/uL (4.5-11.0)
[2019-03-22] MEDS: Insulin Lispro 1 UNITS/0.01 ML SC SCH ×3 (08:30→18:13)
[2019-03-22 08:38] LABS: ALB/GLOB RATIO 1.4 (1.1-1.8); ALBUMIN 3.6 g/dL (3.0-4.8); ALT/SGPT 138 U/L (7-56); AST/SGOT 85 U/L (17-59); BLOOD UREA NITROGEN 35 mg/dL (7-21); CALCIUM 8.6 mg/dL (8.4-10.5); GFR NON-AFRICAN AMERICAN 57
[2019-03-22] MEDS: Enoxaparin 40 mg Syringe SC SCH (09:03)
[2019-03-22] MEDS: Multivitamin With Minerals Tab PO SCH (09:03)
[2019-03-22] MEDS ORDERED: Magnesium Sulfate 1 gm in D5W 1 GM/100 ML BAG IVPB ONE (11:05)
[2019-03-22] MEDS ORDERED: Magnesium Sulfate 2 gm/50 ml 2 GM/50 ML BAG IVPB ONE (11:06)
--- NOTE | 2019-03-22 11:08 | CP.PCM.PN ---
<Lina Rivera - Last Filed: 03/22/19 10:54> Subjective - Date & Time of Evaluation Date of Evaluation: 03/22/19 Time of Evaluation: 10:54 - Subjective Subjective: Lina Rivera, PGY-1, Internal Medicine Progress Note for Dr. Bob Patient seen and evaluated at bedside. Patient had no acute overnight events. Patient reports improvement in respiration, abdominal distension and lower extremity edema. Patient has been able to walk a few laps with physical therapy however was short of breath and needed to stand and take rest periods. 12-point ROS was unremarkable except for what was mentioned above. Objective - Vital Signs/Intake and Output Vital Signs (last 24 hours): Temp Pulse Resp BP Pulse Ox 97.6 F 112 H 22 125/90 99 03/22/19 05:55 03/22/19 09:04 03/22/19 05:55 03/22/19 09:04 03/22/19 05:55 Intake and Output: 03/22/19 03/22/19 06:59 18:59 Intake Total 2100 Output Total 910 Balance 1190 - Medications Medications: Current Medications Carvedilol (Coreg) 6.25 mg PO BID [facility] Last Admin: 03/22/19 09:04 Dose: 6.25 mg Enoxaparin Sodium (Lovenox) 40 mg SC DAILY [facility]; Protocol Last Admin: 03/22/19 09:03 Dose: 40 mg Famotidine (Pepcid) 20 mg PO 1000,2200 [facility] Last Admin: 03/22/19 09:05 Dose: 20 mg Ferrous Sulfate (Feosol) 324 mg PO TID [facility] Last Admin: 03/22/19 09:04 Dose: 324 mg Folic Acid (Folic Acid) 1 mg PO DAILY [facility] Last Admin: 03/22/19 09:03 Dose: 1 mg Furosemide (Lasix) 40 mg IVP BID [facility] Last Admin: 03/22/19 09:03 Dose: 40 mg Insulin Detemir (Levemir) 3 unit SC HS [facility] Last Admin: 03/21/19 21:39 Dose: 3 units Insulin Human Lispro (Humalog Low) 0 units SC ACHS [facility]; Protocol Last Admin: 03/22/19 08:00 Dose: 1 units Insulin Human Lispro (Humalog) 1 units SC AC [facility] Last Admin: 03/21/19 19:07 Dose: Not Given Lisinopril (Zestril) 5 mg PO DAILY [facility] Last Admin: 03/22/19 09:04 Dose: 5 mg Lorazepam (Ativan) 1 mg IVP Q4H PRN; Protocol PRN Reason: Anxiety Last Admin: 03/21/19 21:40 Dose: 1 mg Multivitamins/Minerals (Therapeutic-M Tab) 1 tab PO 0800 [facility] Last Admin: 03/22/19 09:03 Dose: 1 tab Nicotine (Nicoderm Cq) 1 patch TD DAILY [facility] Last Admin: 03/22/19 09:08 Dose: 1 patch Spironolactone (Aldactone) 25 mg PO BID [facility] Last Admin: 03/22/19 09:04 Dose: 25 mg Thiamine HCl (Vitamin B1 Tab) 100 mg PO DAILY [facility] Last Admin: 03/22/19 09:04 Dose: 100 mg - Labs Labs: 03/22/19 07:00 03/22/19 07:00 PT 14.1 SECONDS (9.4-12.5) H 03/20/19 08:30 INR 1.25 03/20/19 08:30 APTT 31.1 Seconds (26.9-38.3) 03/20/19 08:30 - Constitutional Appears: Well, Non-toxic, No Acute Distress - Head Exam Head Exam: ATRAUMATIC, NORMAL INSPECTION, NORMOCEPHALIC - Eye Exam Eye Exam: EOMI, PERRL - ENT Exam ENT Exam: Mucous Membranes Moist - Respiratory Exam Respiratory Exam: CTA bilaterally, no wheezes, rales, rhonchi - GI/Abdominal Exam GI & Abdominal Exam: Distended, Soft, Normal Bowel Sounds. absent: Firm, Guarding, Rigid, Tenderness - Extremities Exam Extremities Exam: Full ROM, Normal Capillary Refill, Normal Inspection, +1 pedal edema - Neurological Exam Neurological Exam: Alert, Awake, CN II-XII Intact, Oriented x3 - Psychiatric Exam Psychiatric exam: Normal Affect, Normal Mood - Skin Skin Exam: Dry, Intact Additional comments: full body rash Assessment and Plan - Assessment and Plan (Free Text) Assessment: 39 year old male with past medical history diabetes mellitus type II, hypertension, history of acute pancreatitis, history of alcohol abuse, and fatty liver presented with shortness of breath and lower extremity edema for one week. Patient was admitted for congestive heart failure and suspected alcohol withdrawal. Patient was diuresed in the emergency department with improvement in symptoms Plan: Systolic Congestive Heart Failure Exacerbation -Echocardiogram 03/20: LVEF 15-20%, global LV hypokinesis, mild concentric LVH, small pericardial effusion -Currently has no chest pain at this time, so will not start NSAID for pericardial effusion -Elevated BNP on admission with CXR showing mild cardiomegaly without sig nificant effusion -Tropx3: <0.05 -Continue coreg 6.25 mg BID, zestril 5 mg daily, and spirinolactone 25 mg BID as per cardiology -Continue lasix to 40 mg BID IV -Plan for catheterization next week. Could be done inpatient or outpatient. -Daily weight -Monitor I and Os Sinus tachycardia -Confirmed by EKG on admission -Continue coreg 6.25 mg BID Alcohol abuse with concern for alcohol withdrawal -Alc level: 32 on admission -CIWA protocol initiated -CIWAs have been 0 today -Continue ativan 1 mg Q4 PRN for withdrawal symptoms -Continue with MVI, thiamine, and folate Type II Diabetes -HgbA1c: 10.1 -Continue with low SSI -Continue with levemir 3 U HS and lispro 1 U AC -Diabetic education consulted for assistance with starting patient on insulin. -Accuchecks ACHS Microcytic anemia -Iron studies show low % saturation, thus indicating iron deficiency anemia. -Patient reports having bloody bowel movements in the past -Continue patient on ferrous sulfate 324 mg TID -Patient will follow up outpatient for endoscopy with Dr. Palafox Hypomagnesia -Replete as needed Hyperkalemia -Mild at this time -As per cardiology, can continue spirinolactone and lisinopril at this time. -Will continue to monitor Hypocalcemia-resolved -Replete as necessary Tobacco abuse -Continue with nicotine patch Elevated LFTs likely 2/2 to alcohol abuse vs. fatty liver vs. congestive hepatopathy -AST trending down. ALT, ALP trending up. Bilirubin unremarkable -Abdominal ultrasound: hepatomegaly. No acute findings GI prophylaxis: pepcid 20 mg BID DVT prophylaxis: lovenox 40 mg Patient plan discussed with Dr. Bob. <Misael Bob - Last Filed: 03/22/19 11:16> Objective - Vital Signs/Intake and Output Vital Signs (last 24 hours): Temp Pulse Resp BP Pulse Ox 97.6 F 112 H 22 125/90 99 03/22/19 05:55 03/22/19 09:04 03/22/19 05:55 03/22/19 09:04 03/22/19 05:55 Intake and Output: 03/22/19 03/22/19 06:59 18:59 Intake Total 2100 Output Total 910 Balance 1190 - Medications Medications: Current Medications Carvedilol (Coreg) 6.25 mg PO BID [facility] Last Admin: 03/22/19 09:04 Dose: 6.25 mg Enoxaparin Sodium (Lovenox) 40 mg SC DAILY [facility]; Protocol Last Admin: 03/22/19 09:03 Dose: 40 mg Famotidine (Pepcid) 20 mg PO 1000,2200 [facility] Last Admin: 03/22/19 09:05 Dose: 20 mg Ferrous Sulfate (Feosol) 324 mg PO TID [facility] Last Admin: 03/22/19 09:04 Dose: 324 mg Folic Acid (Folic Acid) 1 mg PO DAILY [facility] Last Admin: 03/22/19 09:03 Dose: 1 mg Furosemide (Lasix) 40 mg IVP BID [facility] Last Admin: 03/22/19 09:03 Dose: 40 mg Magnesium Sulfate (Magnesium Sulfate 2 Gm/50 Ml Water) 2 gm in 50 mls @ 50 mls/hr IVPB ONCE ONE Stop: 03/22/19 12:05 Insulin Detemir (Levemir) 3 unit SC HS [facility] Last Admin: 03/21/19 21:39 Dose: 3 units Insulin Human Lispro (Humalog Low) 0 units SC ACHS [facility]; Protocol Last Admin: 03/22/19 08:00 Dose: 1 units Insulin Human Lispro (Humalog) 1 units SC AC [facility] Last Admin: 03/21/19 19:07 Dose: Not Given Lisinopril (Zestril) 5 mg PO DAILY [facility] Last Admin: 03/22/19 09:04 Dose: 5 mg Lorazepam (Ativan) 1 mg IVP Q4H PRN; Protocol PRN Reason: Anxiety Last Admin: 03/21/19 21:40 Dose: 1 mg Multivitamins/Minerals (Therapeutic-M Tab) 1 tab PO 0800 [facility] Last Admin: 03/22/19 09:03 Dose: 1 tab Nicotine (Nicoderm Cq) 1 patch TD DAILY [facility] Last Admin: 03/22/19 09:08 Dose: 1 patch Spironolactone (Aldactone) 25 mg PO BID [facility] Last Admin: 03/22/19 09:04 Dose: 25 mg Thiamine HCl (Vitamin B1 Tab) 100 mg PO DAILY [facility] Last Admin: 03/22/19 09:04 Dose: 100 mg - Labs Labs: 03/22/19 07:00 03/22/19 07:00 PT 14.1 SECONDS (9.4-12.5) H 03/20/19 08:30 INR 1.25 03/20/19 08:30 APTT 31.1 Seconds (26.9-38.3) 03/20/19 08:30 Attending/Attestation - Attestation I have personally seen and examined this patient.: Yes I have fully participated in the care of the patient.: Yes I have reviewed all pertinent clinical information, including history, physical exam and plan: Yes Notes (Text): 03/22/19 11:14 39 year old female male with past medical history of alcohol abuse, diabetes, and hypertension who presented with complaint of shortness of breath, orthopnea and lower extremity edema. Found to have elevated pbnp and mild cardiomegaly on chest xray. Echocardiogram was reviewed which showed 15-20% EF, global LV hypokinesis. Patient is on iv lasix bid, coreg, lisinopril and spironalactone. Cardiology is following. Continue to monitor K/Cr closely while on lisinopril and spironalactone as per cardiology. Plan for possible cath next week as per cardiology. Counselled on alcohol cessation. Continue with multivitamin, folic acid and thiamine. Ativan prn in case of withdrawal symptoms. Elevated LFTs likely secondary to ETOH abuse and fatty liver. Continue to monitor closely. Anemia workup consistent with iron deficiency anemia. He is on iron supplements and has outpatient GI follow up for EGD/colonoscopy. A1c is 10.1 and patient is started on levemir for diabetes. Will replete and repeat magnesium. Misael Bob MD Hospitalist.
--- NOTE | 2019-03-22 13:50 | US ---
HISTORY: Leg pain and swelling. Evaluate for DVT PHYSICIAN(S): Kb Loyola MD. TECHNIQUE: Duplex sonography and color-flow Doppler with graded compression were used to evaluate the deep venous systems of both lower extremities. The exam is somewhat limited by edema FINDINGS: The visualized deep venous systems of both lower extremities are sonographically normal and compressible. Normal wave forms and augmentation are seen. There is no sonographic evidence for deep venous thrombosis in the visualized segments of both lower extremities. IMPRESSION: No sonographic evidence for deep venous thrombosis in the visualized segments of both lower extremities.
[2019-03-22] MEDS: Insulin Detemir 100 units/ml Vial (Levemir) SC SCH (22:10)
[2019-03-23 07:49] LABS: BASO # 0.12 K/mm3 (0.0-2.0); BASO % 1.4 % (0.0-3.0); EOS # 0.2 (0.0-0.7); EOS % 2.8 % (1.5-5.0); HEMOGLOBIN 9.6 g/dL (14.0-18.0); LYMPH # 2.6 (1.2-3.4); LYMPH % 30.1 % (22.0-35.0); MEAN CELL VOLUME 78.4 fl (80.0-105.0); MEAN CORPUSCULAR HEMOGLOBIN 23.8 pg (25.0-35.0); MEAN CORPUSCULAR HGB CONC 30.4 g/dl (31.0-37.0); MEAN PLATELET VOLUME 9.9 fl (7.0-11.0); MONO # 0.7 (0.1-0.6); MONO % 7.7 % (1.0-6.0); RBC 4.03 10^6/uL (3.5-6.1); RED CELL DISTRIBUTION WIDTH 15.2 % (11.5-14.5); WHITE BLOOD COUNT 8.7 10^3/uL (4.5-11.0)
[2019-03-23 08:14] LABS: ALB/GLOB RATIO 1.4 (1.1-1.8); ALBUMIN 3.3 g/dL (3.0-4.8); ALT/SGPT 120 U/L (7-56); AST/SGOT 72 U/L (17-59); BLOOD UREA NITROGEN 39 mg/dL (7-21); CALCIUM 8.5 mg/dL (8.4-10.5); GFR NON-AFRICAN AMERICAN 57
--- NOTE | 2019-03-23 08:44 | PN ---
DATE: 03/23/2019 SUBJECTIVE: The patient is seen lying in bed on telemetry. He is comfortable at the present time. His edema has improved, dyspnea has improved as well. He has had no further ventricular tachycardia. MEDICATIONS: His current medications include Aldactone 25 mg b.i.d., Ativan p.r.n., carvedilol 12.5 mg b.i.d., iron supplements, folic acid, insulin, Lasix 40 mg IV b.i.d., Levemir insulin, Lovenox 40 mg daily, nicotine patch, Pepcid, and Zestril 5 mg daily. OBJECTIVE: GENERAL: He is a middle-aged man who is comfortable at rest. VITAL SIGNS: Blood pressure is 116/84 with a pulse of 100 and sinus, respirations are 16. He is afebrile. HEENT: No JVD. Carotid upstrokes are 1+ bilaterally. CHEST: Diminished breath sounds at the bases. HEART: PMI displaced laterally with soft tones noted. ABDOMEN: Soft, nontender, normoactive bowel sounds. EXTREMITIES: 1+ ankle edema. DIAGNOSTIC DATA: Morning blood work is pending. IMPRESSION: 1. Decompensated congestive heart failure, acute systolic, suspect this is secondary to alcoholic cardiomyopathy. 2. History of longstanding tobacco abuse. 3. History of alcohol abuse. 4. Remote history of pancreatitis. RECOMMENDATIONS: His current medications will continue for now. He is scheduled for a right and left heart catheterization and possible coronary intervention in the morning. The risks and benefits were discussed in detail with him, he is agreeable to proceed. Further recommendations will be made based upon those results. I will continue to follow along and make further recommendations as appropriate. Ricardo Daily MD
[2019-03-23] MEDS: Insulin Lispro (humaLOG) LOW Coverage SC SCH ×4 (09:00→23:00)
[2019-03-23] MEDS: Insulin Lispro 1 UNITS/0.01 ML SC SCH ×3 (09:24→17:52)
[2019-03-23] MEDS: Enoxaparin 40 mg Syringe SC SCH (09:25)
[2019-03-23] MEDS: Multivitamin With Minerals Tab PO SCH (09:27)
[2019-03-23] MEDS ORDERED: Magnesium Sulfate 2 gm/50 ml 2 GM/50 ML BAG IVPB ONE (10:28)
--- NOTE | 2019-03-23 10:34 | CP.PCM.PN ---
<Lina Rivera - Last Filed: 03/23/19 10:23> Subjective - Date & Time of Evaluation Date of Evaluation: 03/23/19 Time of Evaluation: 10:23 - Subjective Subjective: Lina iRvera, PGY-1, Internal Medicine Progress Note for Dr. Bob Patient seen and evaluated at bedside. Patient had no acute overnight events. Patient has improved shortness of breath, abdominal distension, and lower extremity edema. He reported itching last night. 12-point ROS was unremarkable except for what was mentioned above. Objective - Vital Signs/Intake and Output Vital Signs (last 24 hours): Temp Pulse Resp BP Pulse Ox 97.6 F 108 H 20 133/91 H 98 03/23/19 06:00 03/23/19 09:25 03/23/19 06:00 03/23/19 09:26 03/22/19 17:33 Intake and Output: 03/23/19 03/23/19 06:59 18:59 Intake Total 960 Balance 960 - Medications Medications: Current Medications Carvedilol (Coreg) 12.5 mg PO BID [facility] Last Admin: 03/23/19 09:25 Dose: 12.5 mg Enoxaparin Sodium (Lovenox) 40 mg SC DAILY [facility]; Protocol Last Admin: 03/23/19 09:25 Dose: 40 mg Famotidine (Pepcid) 20 mg PO 1000,2200 [facility] Last Admin: 03/23/19 09:25 Dose: 20 mg Ferrous Sulfate (Feosol) 324 mg PO TID [facility] Last Admin: 03/23/19 09:24 Dose: 324 mg Folic Acid (Folic Acid) 1 mg PO DAILY [facility] Last Admin: 03/23/19 09:24 Dose: 1 mg Furosemide (Lasix) 40 mg IVP BID [facility] Last Admin: 03/23/19 09:26 Dose: 40 mg Insulin Detemir (Levemir) 6 unit SC HS [facility] Last Admin: 03/22/19 22:10 Dose: 6 u Insulin Human Lispro (Humalog Low) 0 units SC ACHS [facility]; Protocol Last Admin: 03/23/19 09:00 Dose: 2 units Insulin Human Lispro (Humalog) 2 units SC AC [facility] Last Admin: 03/23/19 09:24 Dose: 2 u Lisinopril (Zestril) 5 mg PO DAILY [facility] Last Admin: 03/23/19 09:25 Dose: 5 mg Lorazepam (Ativan) 1 mg IVP Q4H PRN; Protocol PRN Reason: Anxiety Last Admin: 03/22/19 21:58 Dose: 1 mg Multivitamins/Minerals (Therapeutic-M Tab) 1 tab PO 0800 [facility] Last Admin: 03/23/19 09:27 Dose: 1 tab Nicotine (Nicoderm Cq) 1 patch TD DAILY [facility] Last Admin: 03/23/19 09:29 Dose: 1 patch Spironolactone (Aldactone) 25 mg PO BID [facility] Last Admin: 03/23/19 09:29 Dose: 25 mg Thiamine HCl (Vitamin B1 Tab) 100 mg PO DAILY [facility] Last Admin: 03/23/19 09:27 Dose: 100 mg - Labs Labs: 03/23/19 07:00 03/23/19 07:00 PT 14.1 SECONDS (9.4-12.5) H 03/20/19 08:30 INR 1.25 03/20/19 08:30 APTT 31.1 Seconds (26.9-38.3) 03/20/19 08:30 - Constitutional Appears: Well, Non-toxic, No Acute Distress - Head Exam Head Exam: ATRAUMATIC, NORMAL INSPECTION, NORMOCEPHALIC - Eye Exam Eye Exam: EOMI, PERRL - ENT Exam ENT Exam: Mucous Membranes Moist - Respiratory Exam Respiratory Exam: CTA bilaterally, no wheezes, rales, rhonchi - GI/Abdominal Exam GI & Abdominal Exam: Distention improved, Soft, Normal Bowel Sounds. absent: Firm, Guarding, Rigid, Tenderness - Extremities Exam Extremities Exam: Full ROM, Normal Capillary Refill, Normal Inspection, +1 pedal edema - Neurological Exam Neurological Exam: Alert, Awake, CN II-XII Intact, Oriented x3 - Psychiatric Exam Psychiatric exam: Normal Affect, Normal Mood - Skin Skin Exam: Dry, Intact Additional comments: full body rash Assessment and Plan - Assessment and Plan (Free Text) Assessment: 39 year old male with past medical history diabetes mellitus type II, hypertension, history of acute pancreatitis, history of alcohol abuse, and fatty liver presented with shortness of breath and lower extremity edema for one week. Patient was admitted for congestive heart failure and suspected alcohol withdrawal. Patient was diuresed in the emergency department with improvement in symptoms Plan: Systolic Congestive Heart Failure Exacerbation -Echocardiogram 03/20: LVEF 15-20%, global LV hypokinesis, mild concentric LVH, small pericardial effusion -Currently has no chest pain at this time, so will not start NSAID for pericardial effusion -Elevated BNP on admission with CXR showing mild cardiomegaly without significant effusion -Tropx3: <0.05 -Continue zestril 5 mg daily, and spirinolactone 25 mg BID as per cardiology -Increased coreg to 12.5 mg BID -Continue lasix to 40 mg BID IV -Plan for catheterization Sunday -Daily weight -Monitor I and Os Sinus tachycardia -Confirmed by EKG on admission -Increased coreg 12.5 mg to BID Alcohol abuse with concern for alcohol withdrawal -Alc level: 32 on admission -CIWA protocol initiated -CIWAs have been 0 today -Continue ativan 1 mg Q4 PRN for withdrawal symptoms -Continue with MVI, thiamine, and folate -Counseled on alcohol cessation Type II Diabetes -HgbA1c: 10.1 -Continue with low SSI -Increased insulin to levemir 6 U HS and lispro 2 U AC -Diabetic education consulted for assistance with starting patient on insulin. -Accuchecks ACHS Microcytic anemia -Iron studies show low % saturation, thus indicating iron deficiency anemia. -Patient reports having bloody bowel movements in the past -Continue patient on ferrous sulfate 324 mg TID -Patient will follow up outpatient for endoscopy with Dr. Palafox Hypomagnesia -Replete as needed Hyperkalemia-resolved -As per cardiology, can continue spirinolactone and lisinopril at this time. -Will continue to monitor Tobacco abuse -Continue with nicotine patch Elevated LFTs likely 2/2 to alcohol abuse vs. fatty liver vs. congestive h epatopathy -AST, ALT, ALP trending down. Bilirubin unremarkable -Abdominal ultrasound 03/20: hepatomegaly. No acute findings GI prophylaxis: pepcid 20 mg BID DVT prophylaxis: lovenox 40 mg Patient plan discussed with Dr. Bob. <Misael Bob - Last Filed: 03/23/19 11:02> Objective - Vital Signs/Intake and Output Vital Signs (last 24 hours): Temp Pulse Resp BP Pulse Ox 97.6 F 108 H 20 133/91 H 98 03/23/19 06:00 03/23/19 09:25 03/23/19 06:00 03/23/19 09:26 03/22/19 17:33 Intake and Output: 03/23/19 03/23/19 06:59 18:59 Intake Total 960 Balance 960 - Medications Medications: Current Medications Carvedilol (Coreg) 12.5 mg PO BID [facility] Last Admin: 03/23/19 09:25 Dose: 12.5 mg Enoxaparin Sodium (Lovenox) 40 mg SC DAILY [facility]; Protocol Last Admin: 03/23/19 09:25 Dose: 40 mg Famotidine (Pepcid) 20 mg PO 1000,2200 [facility] Last Admin: 03/23/19 09:25 Dose: 20 mg Ferrous Sulfate (Feosol) 324 mg PO TID [facility] Last Admin: 03/23/19 09:24 Dose: 324 mg Folic Acid (Folic Acid) 1 mg PO DAILY [facility] Last Admin: 03/23/19 09:24 Dose: 1 mg Furosemide (Lasix) 40 mg IVP BID [facility] Last Admin: 03/23/19 09:26 Dose: 40 mg Magnesium Sulfate (Magnesium Sulfate 2 Gm/50 Ml Water) 2 gm in 50 mls @ 50 mls/hr IVPB ONCE ONE Stop: 03/23/19 11:27 Insulin Detemir (Levemir) 6 unit SC HS [facility] Last Admin: 03/22/19 22:10 Dose: 6 u Insulin Human Lispro (Humalog Low) 0 units SC ACHS [facility]; Protocol Last Admin: 03/23/19 09:00 Dose: 2 units Insulin Human Lispro (Humalog) 2 units SC AC [facility] Last Admin: 03/23/19 09:24 Dose: 2 u Lisinopril (Zestril) 5 mg PO DAILY [facility] Last Admin: 03/23/19 09:25 Dose: 5 mg Lorazepam (Ativan) 1 mg IVP Q4H PRN; Protocol PRN Reason: Anxiety Last Admin: 03/22/19 21:58 Dose: 1 mg Multivitamins/Minerals (Therapeutic-M Tab) 1 tab PO 0800 [facility] Last Admin: 03/23/19 09:27 Dose: 1 tab Nicotine (Nicoderm Cq) 1 patch TD DAILY [facility] Last Admin: 03/23/19 09:29 Dose: 1 patch Spironolactone (Aldactone) 25 mg PO BID [facility] Last Admin: 05/12/19 09:29 Dose: 25 mg Thiamine HCl (Vitamin B1 Tab) 100 mg PO DAILY [facility] Last Admin: 03/23/19 09:27 Dose: 100 mg - Labs Labs: 03/23/19 07:00 03/23/19 07:00 PT 14.1 SECONDS (9.4-12.5) H 03/20/19 08:30 INR 1.25 03/20/19 08:30 APTT 31.1 Seconds (26.9-38.3) 03/20/19 08:30 Attending/Attestation - Attestation I have personally seen and examined this patient.: Yes I have fully participated in the care of the patient.: Yes I have reviewed all pertinent clinical information, including history, physical exam and plan: Yes Notes (Text): 03/23/19 10:59 39 year old female male with past medical history of alcohol abuse, diabetes, and hypertension who presented with complaint of shortness of breath, orthopnea and lower extremity edema. Found to have elevated pbnp and mild cardiomegaly on chest xray. Echocardiogram was reviewed which showed 15-20% EF, global LV hypokinesis. Patient is on iv lasix bid, coreg, lisinopril and spironalactone. Cardiology is following. Plan for possible cath tomorrow as per cardiology. Counselled on alcohol cessation. Continue with multivitamin, folic acid and thiamine. Ativan prn in case of withdrawal symptoms. Elevated LFTs likely secondary to ETOH abuse and fatty liver. Continue to monitor closely. Anemia workup consistent with iron deficiency anemia. He is on iron supplements and has outpatient GI follow up for EGD/colonoscopy. A1c is 10.1 and patient is started on levemir for diabetes. Diabetic education referral. Will replete and repeat magnesium. Misael Bob MD Hospitalist.
[2019-03-23] MEDS: Insulin Detemir 100 units/ml Vial (Levemir) SC SCH (22:54)
[2019-03-24 06:37] LABS: BASO # 0.06 K/mm3 (0.0-2.0); BASO % 0.8 % (0.0-3.0); EOS # 0.3 (0.0-0.7); EOS % 3.5 % (1.5-5.0); HEMOGLOBIN 9.7 g/dL (14.0-18.0); LYMPH # 2.3 (1.2-3.4); LYMPH % 29.4 % (22.0-35.0); MEAN CELL VOLUME 79.2 fl (80.0-105.0); MEAN CORPUSCULAR HEMOGLOBIN 23.8 pg (25.0-35.0); MEAN PLATELET VOLUME 9.6 fl (7.0-11.0); MONO # 0.7 (0.1-0.6); MONO % 8.5 % (1.0-6.0); RBC 4.08 10^6/uL (3.5-6.1); RED CELL DISTRIBUTION WIDTH 15.5 % (11.5-14.5); WHITE BLOOD COUNT 7.8 10^3/uL (4.5-11.0)
[2019-03-24 07:15] LABS: ALB/GLOB RATIO 1.3 (1.1-1.8); ALBUMIN 3.2 g/dL (3.0-4.8); ALT/SGPT 114 U/L (7-56); AST/SGOT 68 U/L (17-59); BLOOD UREA NITROGEN 44 mg/dL (7-21); CALCIUM 8.7 mg/dL (8.4-10.5); GFR NON-AFRICAN AMERICAN 52
[2019-03-24] MEDS: Insulin Lispro 1 UNITS/0.01 ML SC SCH ×3 (07:56→17:49)
[2019-03-24] MEDS: Insulin Lispro (humaLOG) LOW Coverage SC SCH ×4 (07:56→22:00)
[2019-03-24] MEDS ORDERED: Magnesium Sulfate 2 gm/50 ml 2 GM/50 ML BAG IVPB ONE (08:25)
[2019-03-24] MEDS ORDERED: Iodixanol 320 MG/ML 200 ML BOTTLE IV ONE (08:44)
[2019-03-24] MEDS ORDERED: Lidocaine PF 2% (5 ml) Inj (For Cardiac Arrhy) ONE (08:44)
[2019-03-24] MEDS ORDERED: Iohexol 350mgl/ml 50 ML ONE (08:44)
--- NOTE | 2019-03-24 09:30 | PN ---
DATE: 03/22/2019 SUBJECTIVE: The patient is seen lying in bed on telemetry. He is feeling comfortable. He has been diuresing well. His dyspnea is improved. His current medications include Aldactone 25 mg b.i.d., Ativan p.r.n., carvedilol 6.25 mg b.i.d., ferrous sulfate, folic acid, insulin, Lasix 40 mg IV b.i.d., Lovenox, Nicoderm, magnesium, Pepcid, and Zestril 5 mg daily. OBJECTIVE: GENERAL: He is an overweight young man. VITAL SIGNS: Blood pressure is 126/90 with a pulse of 110 in sinus, respirations are 16. He is afebrile. HEENT: No JVD. CHEST: Diminished breath sounds at the bases. HEART: PMI displaced laterally with soft tones noted. ABDOMEN: Soft and nontender with normoactive bowel sounds. EXTREMITIES: 1+ leg edema. DIAGNOSTIC DATA: Potassium 5.3, BUN and creatinine 35 and 1.4, glucose 153. White count 8.7, hemoglobin and hematocrit 10.2 and 33.8 with platelet count 458,000. AST and ALT 85 and 138. IMPRESSION: 1. 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 2. History of tobacco abuse. 3. History of hypertension and diabetes. 4. Microcytic anemia. 5. Probable alcoholic liver disease. RECOMMENDATIONS: His current regimen will continue at this time. His carvedilol dose will be increased to 12.5 mg as tolerated. He will undergo right and left heart catheterization Sunday morning to define his anatomy and plan appropriate treatment options. Smoking and alcohol abstinence were again discussed with him. Further plans will be based upon his clinical course and results of his catheterization. Ricardo Daily MD
[2019-03-24] MEDS ORDERED: Midazolam 2 MG/2 ML VIAL ONE ×2 (09:35→10:14)
[2019-03-24] MEDS ORDERED: Sodium Chloride 0.9% 1,000 ML IV SCH (10:45)
[2019-03-24] MEDS: Multivitamin With Minerals Tab PO SCH (11:35)
[2019-03-24] MEDS ORDERED: Morphine 2 mg/ml ISec IVP ONE (11:45)
--- NOTE | 2019-03-24 12:49 | PN ---
DATE: 03/24/2019 SUBJECTIVE: The patient is seen lying in bed, on telemetry. He is comfortable at the present time. He has continued to diurese. He is scheduled for cardiac catheterization later this morning. CURRENT MEDICATIONS: Include Aldactone 25 mg b.i.d., Ativan once daily, Colace, carvedilol 12.5 mg b.i.d., ferrous sulphate, folic acid, insulin, Lasix 40 mg IV b.i.d., Nicoderm, Pepcid, Lovenox, and Zestril 5 mg daily. OBJECTIVE: GENERAL: He is a middle-aged man who is comfortable at rest. VITAL SIGNS: Blood pressure is 126/86 with a pulse of 96 and sinus, respirations are 14. He is afebrile. HEENT: No JVD. CHEST: Few scattered rhonchi. HEART: PMI displaced laterally with soft tones noted. ABDOMEN: Soft, nontender, normoactive bowel sounds. EXTREMITIES: Trace ankle edema. DIAGNOSTIC DATA: Potassium 4.7, BUN and creatinine are 44 and 1.5. White count is 7.8, hemoglobin and hematocrit 9.7 and 32.3 with platelet count 482,000. IMPRESSION: 1. 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 2. History of tobacco abuse. 3. Constant history of alcohol abuse. 4. History of pancreatitis. RECOMMENDATIONS: The patient will undergo cardiac catheterization today and further recommendations will be made based upon those findings. Risks and benefits have been discussed with him and he is agreeable to proceed. His Lovenox and furosemide have been placed on hold, pending his catheterization. I will follow along as needed. Ricardo Daily MD
--- NOTE | 2019-03-24 14:06 | CP.PCM.PN ---
Subjective - Date & Time of Evaluation Date of Evaluation: 03/24/19 Time of Evaluation: 14:03 - Subjective Subjective: Lina Rivera, PGY-1, Internal Medicine Progress Note for Dr. Busby Patient seen and evaluated at bedside. Patient had no acute overnight events. Patient went for cardiac catheterization today. Patient reports improved shortness of breath, abdominal distension, and bilateral lower extremity edema. 12-point ROS was unremarkable except for what was mentioned above. Objective - Vital Signs/Intake and Output Vital Signs (last 24 hours): Temp Pulse Resp BP Pulse Ox 98.2 F 89 18 121/84 100 03/24/19 11:57 03/24/19 11:57 03/24/19 11:57 03/24/19 11:57 03/24/19 06:00 Intake and Output: 03/24/19 03/24/19 06:59 18:59 Intake Total 2380 Output Total 0 Balance 2380 - Medications Medications: Current Medications Acetaminophen (Tylenol 325mg Tab) 650 mg PO Q6H PRN PRN Reason: for MILD TO MODERATE PAIN Carvedilol (Coreg) 12.5 mg PO BID [facility] Last Admin: 03/24/19 11:36 Dose: 12.5 mg Docusate Sodium (Colace) 100 mg PO BID [facility] Last Admin: 03/24/19 11:35 Dose: 100 mg Enoxaparin Sodium (Lovenox) 40 mg SC DAILY [facility]; Protocol Last Admin: 03/23/19 09:25 Dose: 40 mg Famotidine (Pepcid) 20 mg PO 1000,2200 [facility] Last Admin: 03/24/19 11:38 Dose: 20 mg Ferrous Sulfate (Feosol) 324 mg PO TID [facility] Last Admin: 03/24/19 11:36 Dose: 324 mg Folic Acid (Folic Acid) 1 mg PO DAILY [facility] Last Admin: 03/24/19 11:35 Dose: 1 mg Furosemide (Lasix) 40 mg IVP BID [facility] Last Admin: 03/23/19 17:53 Dose: 40 mg Ibuprofen (Motrin Tab) 600 mg PO Q6H PRN PRN Reason: for MILD/MODERATE PAIN Insulin Detemir (Levemir) 6 unit SC HS [facility] Last Admin: 03/23/19 22:54 Dose: 6 u Insulin Human Lispro (Humalog Low) [address] [facility]; Protocol Last Admin: 03/24/19 12:56 Dose: 1 units Insulin Human Lispro (Humalog) 2 units SC AC [facility] Last Admin: 03/24/19 12:57 Dose: 2 units Lisinopril (Zestril) 5 mg PO DAILY [facility] Last Admin: 03/24/19 11:36 Dose: 5 mg Lorazepam (Ativan) 1 mg IVP Q4H PRN; Protocol PRN Reason: Anxiety Last Admin: 03/23/19 22:53 Dose: 1 mg Multivitamins/Minerals (Therapeutic-M Tab) 1 tab PO 0800 [facility] Last Admin: 03/24/19 11:35 Dose: 1 tab Nicotine (Nicoderm Cq) 1 patch TD DAILY [facility] Last Admin: 03/24/19 11:37 Dose: 1 patch Pantoprazole Sodium (Protonix Ec Tab) 40 mg PO 0600 [facility] Spironolactone (Aldactone) 25 mg PO BID [facility] Last Admin: 03/24/19 11:46 Dose: 25 mg Thiamine HCl (Vitamin B1 Tab) 100 mg PO DAILY [facility] Last Admin: 03/24/19 11:35 Dose: 100 mg - Labs Labs: 03/24/19 06:00 03/24/19 06:00 PT 14.1 SECONDS (9.4-12.5) H 03/20/19 08:30 INR 1.25 03/20/19 08:30 APTT 31.1 Seconds (26.9-38.3) 03/20/19 08:30 - Constitutional Appears: Well, Non-toxic, No Acute Distress - Head Exam Head Exam: ATRAUMATIC, NORMAL INSPECTION, NORMOCEPHALIC - Eye Exam Eye Exam: EOMI, PERRL - ENT Exam ENT Exam: Mucous Membranes Moist - Respiratory Exam Respiratory Exam: CTA bilaterally, no wheezes, rales, rhonchi - GI/Abdominal Exam GI & Abdominal Exam: Distention improved, Soft, Normal Bowel Sounds. absent: Firm, Guarding, Rigid, Tenderness - Extremities Exam Extremities Exam: Full ROM, Normal Capillary Refill, Normal Inspection, +1 pedal edema - Neurological Exam Neurological Exam: Alert, Awake, CN II-XII Intact, Oriented x3 - Psychiatric Exam Psychiatric exam: Normal Affect, Normal Mood - Skin Skin Exam: Dry, Intact Assessment and Plan - Assessment and Plan (Free Text) Assessment: 39 year old male with past medical history diabetes mellitus type II, hypertension, history of acute pancreatitis, history of alcohol abuse, and fatty liver presented with shortness of breath and lower extremity edema for one week. Patient was admitted for congestive heart failure and suspected alcohol withdrawal. Patient was diuresed in the emergency department with improvement in symptoms Plan: Systolic Congestive Heart Failure Exacerbation -Echocardiogram 03/20: LVEF 15-20%, global LV hypokinesis, mild concentric LVH, small pericardial effusion -Currently has no chest pain at this time, so will not start NSAID for pericardial effusion -Elevated BNP on admission with CXR showing mild cardiomegaly without significant effusion -Tropx3: <0.05 -Continue zestril 5 mg daily, and spirinolactone 25 mg BID as per cardiology -Continue coreg to 12.5 mg BID -Held lasix 40 mg BID IV -Cardiac catheterization performed today. Patient had no significant stenoses. -Started tylenol 650 Q6 PRN and motrin 600 Q6 PRN for pain status post cath -Daily weight -Monitor I and Os Sinus tachycardia -Confirmed by EKG on admission -Improved today -Continue coreg 12.5 mg to BID Alcohol abuse with concern for alcohol withdrawal -Alc level: 32 on admission -CIWA protocol initiated -CIWAs have been 0 today -Continue ativan 1 mg Q4 PRN for withdrawal symptoms -Continue with MVI, thiamine, and folate -Counseled on alcohol cessation Type II Diabetes -HgbA1c: 10.1 -Continue with low SSI -Continue insulin to levemir 6 U HS and lispro 2 U AC -Diabetic education consulted for assistance with starting patient on insulin. -Accuchecks ACHS Microcytic anemia -Iron studies show low % saturation, thus indicating iron deficiency anemia. -Patient reports having bloody bowel movements in the past -Continue patient on ferrous sulfate 324 mg TID -Patient will follow up outpatient for endoscopy with Dr. Palafox Constipation -Continue with colace 100 BID Hypomagnesia -Replete as needed Tobacco abuse -Continue with nicotine patch Elevated LFTs likely 2/2 to alcohol abuse vs. fatty liver vs. congestive hepatopathy -AST, ALT, ALP trending down. Bilirubin unremarkable -Abdominal ultrasound 03/20: hepatomegaly. No acute findings GI prophylaxis: protonix DVT prophylaxis: lovenox 40 mg held, SCD Patient plan discussed with Dr. Busby
--- NOTE | 2019-03-24 14:37 | CARDCATH ---
PROCEDURE DATE: 03/24/2019 PROCEDURES: 1. Right and left heart catheterization. 2. Left and right coronary angiography. 3. Left ventriculography. 4. Right femoral arteriography. 5. Angio-Seal deployment. HISTORY: This is a 39-year-old man admitted with decompensated congestive heart failure and found to have evidence of severe cardiomyopathy. Cardiac catheterization was advised. INDICATION: Congestive heart failure, LV dysfunction. PROCEDURE: A total of 4 mg of Versed and 200 mg of fentanyl was administered intravenously under my supervision. The first dose was administered at 10:01 a.m. The patient was continuously monitored until the end of the procedure at 10:38 a.m. Right femoral arterial access was obtained and coronary angiography performed with 6-[place] JR4 diagnostic catheters. Left ventriculogram was performed with a JR catheter as well. Following procedure, all catheters and sheaths were removed. The arterial access site was closed with the use of an Angio-Seal device. The venous sheath was removed with manual pressure and applied until adequate hemostasis was achieved. FINDINGS: HEMODYNAMICS: The right heart pressures were as follows. The RA mean pressure was 13. The RV pressure was 46/8. The PA pressure was 48/10. The pulmonary capillary wedge pressure was 22. The cardiac output by thermodilution method was 3.8 liters per minute with cardiac index of 1.7 liters minute per meter square. CORONARY ANATOMY: 1. The left mainstem was normal. 2. Left anterior descending artery branches were normal. 3. The left circumflex artery was normal. 4. The right coronary artery was dominant. The vessel and its branches were normal as well. LEFT VENTRICULOGRAPHY: A hand injection was performed in the left ventricle with hand injection only. This revealed severe global hypokinesis with an ejection fraction of 15-20%. There is no aortic valve gradient on catheter pullback. LEFT FEMORAL ARTERIOGRAPHY: A left femoral arteriogram revealed no evidence of significant disease and appropriate level of arterial puncture this was performed prior to deployment of the Angio-Seal device. CONCLUSIONS: 1. Severe congestive cardiomyopathy. 2. Severely reduced left ventricular systolic function with ejection fraction 15-20%. 3. Moderately elevated right heart pressures with elevated pulmonary artery wedge pressure. RECOMMENDATIONS: Continued afterload reduction, beta-omari therapy and diuretic therapy as advised. The need for sodium and fluid restriction and will be presented to him. The need for alcohol absence was discussed as well. Ricardo Daily MD [facility]
[2019-03-24] MEDS: Insulin Detemir 100 units/ml Vial (Levemir) SC SCH (22:44)
[2019-03-25 05:36] VITALS: O2SAT 95
[2019-03-25] MEDS ORDERED: Pantoprazole 40 mg EC Tab PO SCH (06:00)
[2019-03-25 06:39] LABS: BASO # 0.08 K/mm3 (0.0-2.0); EOS # 0.2 (0.0-0.7); EOS % 2.4 % (1.5-5.0); HEMOGLOBIN 9.7 g/dL (14.0-18.0); LYMPH # 2.4 (1.2-3.4); LYMPH % 30.4 % (22.0-35.0); MEAN CELL VOLUME 79.4 fl (80.0-105.0); MEAN CORPUSCULAR HEMOGLOBIN 24.1 pg (25.0-35.0); MEAN CORPUSCULAR HGB CONC 30.3 g/dl (31.0-37.0); MEAN PLATELET VOLUME 9.6 fl (7.0-11.0); MONO # 0.7 (0.1-0.6); MONO % 9.2 % (1.0-6.0); RBC 4.03 10^6/uL (3.5-6.1); RED CELL DISTRIBUTION WIDTH 15.5 % (11.5-14.5); WHITE BLOOD COUNT 7.8 10^3/uL (4.5-11.0)
[2019-03-25 07:12] LABS: ALB/GLOB RATIO 1.3 (1.1-1.8); ALBUMIN 3.3 g/dL (3.0-4.8); ALT/SGPT 94 U/L (7-56); AST/SGOT 38 U/L (17-59); BLOOD UREA NITROGEN 45 mg/dL (7-21); GFR NON-AFRICAN AMERICAN 57
[2019-03-25] MEDS: Insulin Lispro 1 UNITS/0.01 ML SC SCH (07:44)
[2019-03-25] MEDS: Insulin Lispro (humaLOG) LOW Coverage SC SCH ×2 (07:44→12:39)
[2019-03-25] MEDS: Multivitamin With Minerals Tab PO SCH (07:45)
[2019-03-25] MEDS ORDERED: Insulin Lispro 1 UNITS/0.01 ML SC SCH (08:39)
[2019-03-25] MEDS ORDERED: Insulin Detemir 100 units/ml Vial (Levemir) SC SCH (08:40)
[2019-03-25] MEDS: Enoxaparin 40 mg Syringe SC SCH (09:38)
[2019-03-25 09:39] VITALS: PULSE 95
[2019-03-25 11:52] VITALS: BP 107/72; RESP 22; TEMP 97.8
--- NOTE | 2019-03-25 13:48 | CP.PCM.DIS ---
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 HgbA1c>10 03/25/19 09:19 Diabetic Education Referral Routine Comment: Physician Instructions: Reason For Exam: needs to learn how to give himself insulin Time Spent in preparation of Discharge (in minutes): 60 Hospital Course - Lab Results Lab Results: Most Recent Lab Values WBC 7.8 10^3/uL (4.5-11.0) 03/25/19 06:15 RBC 4.03 10^6/uL (3.5-6.1) 03/25/19 06:15 Hgb 9.7 g/dL (14.0-18.0) L 03/25/19 06:15 Hct 32.0 % (42.0-52.0) L 03/25/19 06:15 MCV 79.4 fl (80.0-105.0) L 03/25/19 06:15 MCH 24.1 pg (25.0-35.0) L 03/25/19 06:15 MCHC 30.3 g/dl (31.0-37.0) L 03/25/19 06:15 RDW 15.5 % (11.5-14.5) H 03/25/19 06:15 Plt Count 471 10^3/uL (120.0-450.0) H 03/25/19 06:15 MPV 9.6 fl (7.0-11.0) 03/25/19 06:15 Neut % (Auto) 57.0 % (50.0-68.0) 03/25/19 06:15 Lymph % (Auto) 30.4 % (22.0-35.0) 03/25/19 06:15 Swift % (Auto) 9.2 % (1.0-6.0) H 03/25/19 06:15 Eos % (Auto) 2.4 % (1.5-5.0) 03/25/19 06:15 Baso % (Auto) 1.0 % (0.0-3.0) 03/25/19 06:15 Lymph # (Auto) 2.4 (1.2-3.4) 03/25/19 06:15 Swift # (Auto) 0.7 (0.1-0.6) H 03/25/19 06:15 Eos # (Auto) 0.2 (0.0-0.7) 03/25/19 06:15 Baso # (Auto) 0.08 K/mm3 (0.0-2.0) 03/25/19 06:15 Absolute Neuts (auto) 4.43 (1.4-6.5) 03/25/19 06:15 PT 14.1 SECONDS (9.4-12.5) H 03/20/19 08:30 INR 1.25 03/20/19 08:30 APTT 31.1 Seconds (26.9-38.3) 03/20/19 08:30 Sodium 132 mmol/L (132-148) 03/25/19 06:15 Potassium 4.8 mmol/L (3.6-5.0) 03/25/19 06:15 Chloride 98 mmol/L (98-107) 03/25/19 06:15 Carbon Dioxide 23 mmol/L (21-33) 03/25/19 06:15 Anion Gap 16 (10-20) 03/25/19 06:15 BUN 45 mg/dL (7-21) H 03/25/19 06:15 Creatinine 1.4 mg/dl (0.8-1.5) 03/25/19 06:15 Est GFR ( Amer) > 60 03/25/19 06:15 Est GFR (Non-Af Amer) 57 03/25/19 06:15 POC Glucose (mg/dL) 275 mg/dL (65-110) H 03/25/19 11:57 Random Glucose 248 mg/dL (70-110) H 03/25/19 06:15 Hemoglobin A1c 10.1 % (4.2-6.5) H 03/20/19 07:00 Calcium 9.0 mg/dL (8.4-10.5) 03/25/19 06:15 Ionized Calcium 4.1 mg/dL (4.80-5.60) L 03/20/19 11:30 Phosphorus 5.1 mg/dL (2.5-4.5) H 03/20/19 12:30 Magnesium 1.8 mg/dL (1.7-2.2) 03/25/19 06:15 Iron 23 ug/dL (45-180) L 03/20/19 12:30 TIBC 484 ug/dL (261-462) H 03/20/19 12:30 % Saturation 5 % (20-55) L 03/20/19 12:30 Ferritin 12.3 ng/mL 03/20/19 12:30 Total Bilirubin 0.4 mg/dL (0.2-1.3) 03/25/19 06:15 AST 38 U/L (17-59) 03/25/19 06:15 ALT 94 U/L (7-56) H 03/25/19 06:15 Alkaline Phosphatase 133 U/L (38-126) H 03/25/19 06:15 Troponin I 0.04 ng/mL D 03/20/19 21:40 NT-Pro-B Natriuret Pep 2060 pg/mL (0-450) H 03/20/19 08:30 Total Protein 5.8 g/dL (5.8-8.3) 03/25/19 06:15 Albumin 3.3 g/dL (3.0-4.8) 03/25/19 06:15 Globulin 2.5 gm/dL 03/25/19 06:15 Albumin/Globulin Ratio 1.3 (1.1-1.8) 03/25/19 06:15 Triglycerides 84 mg/dL (35-160) 03/21/19 06:20 Cholesterol 111 mg/dL (130-200) L 03/21/19 06:20 LDL Cholesterol Direct 81 mg/dL (0-129) 03/21/19 06:20 HDL Cholesterol 23 mg/dL (29-60) L 03/21/19 06:20 Vitamin B12 663 pg/mL (239-931) 03/20/19 12:30 Folate 14.4 ng/mL 03/20/19 12:30 TSH 3rd Generation 1.65 mIU/mL (0.46-4.68) 03/20/19 08:30 Urine Opiates Screen Negative (NEGATIVE) 03/20/19 08:36 Urine Methadone Screen Negative (NEGATIVE) 03/20/19 08:36 Ur Barbiturates Screen Negative (NEGATIVE) 03/20/19 08:36 Ur Phencyclidine Scrn Negative (NEGATIVE) 03/20/19 08:36 Ur Amphetamines Screen Negative (NEGATIVE) 03/20/19 08:36 U Benzodiazepines Scrn Negative (NEGATIVE) 03/20/19 08:36 U Oth Cocaine Metabols Negative (NEGATIVE) 03/20/19 08:36 U Cannabinoids Screen Positive (NEGATIVE) H 03/20/19 08:36 Alcohol, Quantitative 32 mg/dL (0-10) H 03/20/19 08:30 - Hospital Course Hospital Course: Lina Rivera, PGY-1, Internal Medicine Discharge Summary for Dr. Busby 39 year old male with past medical history of diabetes mellitus, hypertension, fatty liver, pancreatitis, alcohol abuse presented with shortness of breath with ambulation, worsening lower extremity edema, and abdominal distension for one week. Patient reports improved control of his alcohol use with his last drink 5 drinks prior to presentation at the hospital however, blood alcohol level on admission was 34. He denied any other symptoms on presentation. Patient was diuresed with lasix 60 mg upon presentation to the ED. Upon admission, echocardiogram showed LVEF of 15-20% and global hypokinesis. Abdominal ultrasound showed hepatomegaly. Chest X ray showed no active disease, however this was after diuresis with lasix 60 mg. Patient was started on coreg, lisinopril and lasix 40 mg daily. This was later increased to lasix 40 mg BID as diuresis was insufficient. In addition, Cardiology added spirinolactone after LVEF was found to be 15-20%. Patient had cardiac catheterization performed on Sunday, which showed nonobstructive cardiomyopathy with elevated right ventricular and PCWP. Patient was also hyperglycemic on this admission and basal and bolus insulin were increased as necessary. HgbA1c was 10.1. Patient was finally found to need levemir 9 U HS and lispro 3 U AC. As a result, diabetic education was performed for patient to teach administration of insulin and patient was discharged on levemir and metformin. Patient was found to be anemia on admission and found to have low iron, high TIBC and relatively low ferritin. As a result, patient was started on feosol 324 mg TID. Patient has follow up with Dr. Palafox outpatient for further evaluation of anemia and will follow up with Dr. Palafox for endoscopy outpatient. Patient was found to be stable and ready for discharge. Patient was told to follow up with PCP within 3-5 days. Patient was told to follow up with Dr. Daily within 1 week of discharge. Patient was advised to take all medications prescribed on this admission including coreg, zestril, lasix, aldactone, levemir, feosol. Patient was told to continue home metformin and omeprazole. Patient was told to discontinue alcohol and tobacco use and eat low salt diet. Patient was told to return to the emergency department if he had any new or concerning symptoms. This is a brief summary of the events that transpired during this hospital visit. For more information, please refer to hospital documentation Discharge Diagnoses Systolic Congestive Heart Failure Uncontrolled Diabetes Mellitus Iron Deficiency Anemia - Date & Time of H&P Date of H&P: 03/20/19 Time of H&P: 14:24 Discharge Exam - Head Exam Head Exam: ATRAUMATIC, NORMAL INSPECTION, NORMOCEPHALIC - Eye Exam Eye Exam: EOMI, PERRL - ENT Exam ENT Exam: Mucous Membranes Moist, Normal Exam - Neck Exam Neck exam: Full Rom, Normal Inspection - Respiratory Exam Respiratory Exam: Clear to PA & Lateral, NORMAL BREATHING PATTERN. absent: Rales, Rhonchi, Wheezes - Cardiovascular Exam Cardiovascular Exam: REGULAR RHYTHM, RRR, +S1, +S2. absent: Clicks, Gallop, Rubs - GI/Abdominal Exam GI & Abdominal Exam: Distended, Normal Bowel Sounds, Soft. absent: Tenderness - Extremities Exam Extremities exam: full ROM, normal capillary refill, normal inspection - Psychiatric Exam Psychiatric exam: Normal Affect, Normal Mood - Skin Skin Exam: Dry, Intact, Normal Color Discharge Plan - Discharge Medications Prescriptions: Carvedilol [Coreg] 12.5 mg PO BID 30 Days #60 tab Ferrous Sulfate [Feosol] 324 mg PO TID 30 Days #90 ect Folic Acid 1 mg PO DAILY 30 Days #30 tab Furosemide [Lasix] 40 mg PO BID 30 Days #60 tab Insulin Detemir [Levemir] 9 units SC HS 30 Days #1 vial Lisinopril [Zestril] 5 mg PO DAILY 30 Days #30 tab MetFORMIN [glucoPHAGE] 1,000 mg PO BID 30 Days #60 tab Multimineral/Multivitamin [Therapeutic-M Tab] 1 tab PO 0800 30 Days #30 tab Nicotine 14 mg/24 hr [Nicoderm CQ] 1 patch TD DAILY 30 Days #30 patch Spironolactone [Aldactone] 25 mg PO BID 30 Days #60 tab Thiamine [Vitamin B1 Tab] 100 mg PO DAILY 30 Days #30 tab - Follow Up Plan Condition: GUARDED Disposition: HOME/ ROUTINE Instructions: Cardiac Catheterization, Heart Failure, Adult (DC), Shortness of Breath (Dyspnea) (DC), Quitting Smoking Additional Instructions: Please follow up with Dr. Guzman within 3-5 days. Please follow up with Dr. Daily within 1 week. Please take all medications as prescribed. Please take lisinopril once a day, spirinolactone twice a day, coreg twice a day, and lasix twice a day for new diagnosis of congestive heart failure Please take metformin 1000 mg twice a day and take levemir 9 Units at night every day. Please stop drinking alcohol and smoking Please modify your diet to be low in sodium Please return to the emergency department if you have any new or concerning symptoms. Referrals: Orestes Guzman MD [Staff Provider] - Ricardo Daily MD [Staff Provider] -
--- NOTE | 2019-03-26 01:56 | PN ---
DATE: 03/25/2019 SUBJECTIVE: The patient is seen sitting in bed on telemetry. He is comfortable at the present time. He has had no further dyspnea. His peripheral edema is resolved. He is anxious to go home. MEDICATIONS: His current medications include Aldactone 25 mg b.i.d., carvedilol 12.5 mg b.i.d., iron supplement, folic acid, insulin, Lasix 40 mg IV b.i.d., Lovenox, Nicoderm patch, and Protonix 40 mg daily as well as Zestril 5 mg daily. OBJECTIVE: GENERAL: He is a middle-aged man who appears comfortable at rest. VITAL SIGNS: His blood pressure 120/82 with a pulse of 92 and sinus, respirations 16. He is afebrile. HEENT: No JVD. Carotid strokes are 1+ bilaterally. CHEST: Few scattered rhonchi heard. HEART: PMI displaced laterally with soft tones noted. ABDOMEN: Soft and nontender with bowel sounds. EXTREMITIES: No edema. LABORATORY DATA: Potassium 4.8, BUN and creatinine 45 and 1.4, glucose 248. White count 7.8, hematocrit 9.7, hematocrit 32 with platelet count of 471,000. IMPRESSION: 1. Acute congestive heart failure, systolic, clinically improved. 2. History of tobacco abuse. 3. History of alcohol abuse. RECOMMENDATIONS: His Lasix will be switched to oral administration. The rest of his medications should continue unchanged. From a cardiac standpoint, he appears stable for discharge home at this time. Close outpatient followup with be arranged. The need for sodium and fluid restriction was discussed with him. The need for alcohol and tobacco abstinence was also reviewed. Intensification of medical therapy will be planned and repeat assessment of left ventricular function in three months will be scheduled if his ejection fraction remains below 35%. Consideration will be given to a prophylactic ICD implant. Outpatient followup has been arranged. Ricardo Daily MD
== END 2019-03-25 16:51 | disposition home or self-care (01) | DRG 286 ==
LOC: ED 08:10 → ERH 10:05 → 2RSO 11:57
PROVIDERS: ADMIT Internal Medicine; ATTEND Internal Medicine
PROC: 4A023N8 Measurement of Cardiac Sampling and Pressure, Bilateral, Percutaneous Approach (ICD-10-PCS; principal; 2019-03-24)
PROC: B2151ZZ Fluoroscopy of Left Heart using Low Osmolar Contrast (ICD-10-PCS; 2019-03-24)
PROC: B2111ZZ Fluoroscopy of Multiple Coronary Arteries using Low Osmolar Contrast (ICD-10-PCS; 2019-03-24)
DX: I11.0 Hypertensive heart disease with heart failure (principal); I50.21 Acute systolic (congestive) heart failure; I42.6 Alcoholic cardiomyopathy; I42.0 Dilated cardiomyopathy; E11.65 Type 2 diabetes mellitus with hyperglycemia; E83.42 Hypomagnesemia; K21.9 Gastro-esophageal reflux disease without esophagitis; F17.210 Nicotine dependence, cigarettes, uncomplicated; F10.20 Alcohol dependence, uncomplicated; K70.9 Alcoholic liver disease, unspecified; R16.0 Hepatomegaly, not elsewhere classified; K76.0 Fatty (change of) liver, not elsewhere classified; D50.9 Iron deficiency anemia, unspecified; E83.51 Hypocalcemia; E87.5 Hyperkalemia; Y90.1 Blood alcohol level of 20-39 mg/100 ml; Z79.84 Long term (current) use of oral hypoglycemic drugs

== ENCOUNTER 2019-03-28 11:33 | Emergency (ER) | payer BC ==
[2019-03-28 11:33] VITALS: BMI 30.1
[2019-03-28 11:57] VITALS: RESP 18; TEMP 98.5; O2SAT 99
[2019-03-28] MEDS ORDERED: TDAP Vaccine 0.5 mL Syr IM ONE (12:25)
--- NOTE | 2019-03-28 12:31 | ED PDOC ---
Arrival/HPI - General Chief Complaint: Abnormal Skin Integrity Time Seen by Provider: 03/28/19 11:44 Historian: Patient - History of Present Illness Narrative History of Present Illness (Text): 03/28/19 12:30 39-year-old male presents today with a laceration to the left hand. Patient states he was cutting a piece of fruit with a new knife and the knife went through the fruit and he sustained a laceration to the web spacing of the second and third finger on the left hand. Patient denies numbness weakness or tingling in the extremity. He denies decreased range of motion of the finger. Patient denies fevers or chills. Patient states the incident occurred about 1 hour prior to arrival. Patient is unsure of his last tetanus shot. No other complaints Past Medical History - Provider Review Nursing Documentation Reviewed: Yes - Travel History Have you recently traveled outside [place] w/in the past 3 mons?: No - Infectious Disease Hx of Infectious Diseases: None - Cardiac Hx Hypertension: Yes - Pulmonary Hx Respiratory Disorders: No - Neurological Hx Neurological Disorder: No - HEENT Hx HEENT Disorder: No - Renal Hx Renal Disorder: No - Endocrine/Metabolic Hx Diabetes Mellitus Type 2: Yes - Hematological/Oncological Hx Blood Disorders: No - Integumentary Hx Dermatological Disorder: Yes Other/Comment: red raised itchy rash to abd x 2 days,multiple cuts, red thrasher, burn thrasher various stages 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, redness to both knees work related, red horizontal thrasher to bend in both ankles - Musculoskeletal/Rheumatological Hx Musculoskeletal Disorders: No - Gastrointestinal Hx Gastrointestinal Disorders: Yes (fatty liver, ulcerative colitis, obese) Hx Gastroesophageal Reflux: Yes Hx Pancreatitis: Yes - Genitourinary/Gynecological Hx Genitourinary Disorders: No - Psychiatric Hx Psychophysiologic Disorder: No Hx Substance Use: No - Surgical History Hx Cardiac Catheterization: Yes (03/24/19) - Anesthesia Hx Anesthesia: Yes Hx Anesthesia Reactions: No Hx Malignant Hyperthermia: No Family/Social History - Physician Review Nursing Documentation Reviewed: Yes Family/Social History: Unknown Family HX Smoking Status: Current Some Days Smoker Hx Alcohol Use: Yes (vodka & club 3x's a wk) Hx Substance Use: No Allergies/Home Meds Allergies/Adverse Reactions: Allergies seasonal Allergy (Uncoded 03/28/19 11:57) RASH Home Medications: Home Meds Medication Instructions Recorded Confirmed Omeprazole Magnesium [Prilosec Otc] 20 mg PO DAILY 03/20/19 03/20/19 Review of Systems - Review of Systems Constitutional: absent: Fatigue, Fevers Respiratory: absent: SOB, Cough Cardiovascular: absent: Chest Pain, Palpitations Gastrointestinal: absent: Abdominal Pain, Nausea, Vomiting Musculoskeletal: Arthralgias Skin: Laceration Neurological: absent: Headache, Dizziness Psychiatric: absent: Anxiety, Depression Physical Exam Vital Signs Reviewed: Yes Vital Signs Temp Pulse Resp BP Pulse Ox 03/28/19 11:52 98.5 F 105 H 18 105/72 99 Temperature: Afebrile Blood Pressure: Normal Pulse: Tachycardic Respiratory Rate: Normal Appearance: Positive for: Well-Appearing, Non-Toxic, Comfortable Pain Distress: None Mental Status: Positive for: Alert and Oriented X 3 - Systems Exam Head: Present: Atraumatic Mouth: Present: Moist Mucous Membranes Neck: Present: Normal Range of Motion Respiratory/Chest: Present: Clear to Auscultation, Good Air Exchange. No: Respiratory Distress, Accessory Muscle Use Cardiovascular: Present: Regular Rate and Rhythm, Normal S1, S2. No: Murmurs Upper Extremity: Present: Normal ROM, NORMAL PULSES, Tenderness (Left hand; there is a 2cm gapping linear laceration through the web spacing of the 2nd and 3rd fingers; no active bleeding. full rom of finger; sensation intact to both the medal and lateral aspects of both the 2nd and 3rd fingers. Distal pulses intact. ), Neurovascularly Intact, Capillary Refill < 2s. No: Swelling, Erythema Neurological: Present: GCS=15, Speech Normal Skin: Present: Warm, Dry, Normal Color Psychiatric: Present: Alert, Oriented x 3 Medical Decision Making ED Course and Treatment: 03/28/19 12:33 Patient is nontoxic well appearing in no distress. Vital signs are stable. Wound irrigated well with high pressure irrigation Tetanus updated Keflex p.o. Tylenol p.o. X-ray of the left hand: No fracture no foreign body Laceration repair: 7 sutures placed Bacitracin and dressing applied Patient was advised to keep the wound clean and dry, apply bacitracin twice daily. Advised to return immediately if signs of infection develop or return if any other concerning symptoms develop Impression: Laceration, hand Tylenol every 4 hours as needed for pain Keflex 1 capsule 4 times daily x7 days Keep the wound clean and dry, apply bacitracin twice daily Return in 10 days for suture removal Return immediately if signs of infection develop: High fevers, increasing pain, redness, swelling, purulent discharge Follow up with the hand specialist within the next 2 days. Followup with primary care physician within the next 2 days Return if any other concerning symptoms develop 03/28/19 14:31 - RAD Interpretation Radiology Orders: 03/28/19 12:25 HAND LEFT 3 VIEWS ROUTINE [RAD] Stat - Medication Orders Current Medication Orders: Discontinued Medications Cephalexin Monohydrate (Keflex) 500 mg PO STAT STA; Protocol Stop: 03/28/19 12:26 Tetanus/Reduced Diphtheria/Acell Pertussis (Boostrix Vaccine Inj) 0.5 ml IM .ONCE ONE Stop: 03/28/19 12:26 Procedure: Wound Repair - Procedure Procedure: Wound Repair: laceration, hand - Consent Obtained Consent obtained: Verbal - Performed by Performed by: Mid-level Provider - Indications Indication(s):: Laceration - Location Location:: Left, Volar, Hand (web spacing of 2nd and 3rd fingers of left hand) Shape:: Linear Dimensions Length cm: 2cm Depth:: Subcutaneous fascia - Anesthetic Technique Local/Regional Anesthetic:: Lidocaine 1% (2cc) - Debris Debris:: None - Irrigated Irrigated with ml of normal saline: copious amounts of NS using high pressure irrigation - Complexity Complexity:: Simple (one layer) - Wound repair method Sutures:: # (7), Size (5.0), Type (nylon), Technique (interrupted) - Complications Complications: none - Patient tolerated procedure Patient Tolerated Procedure:: Well Disposition/Present on Arrival - Present on Arrival Any Indicators Present on Arrival: No History of DVT/PE: No History of Uncontrolled Diabetes: No Urinary Catheter: No History of Decub. Ulcer: No History Surgical Site Infection Following: None - Disposition Have Diagnosis and Disposition been Completed?: Yes Diagnosis: Laceration of hand Disposition: HOME/ ROUTINE Disposition Time: 12:34 Patient Plan: Discharge Condition: GOOD Discharge Instructions (ExitCare): Wound Care (DC), Laceration Repair With Stitches (DC) Additional Instructions: Tylenol every 4 hours as needed for pain Keflex 1 capsule 4 times daily x7 days Keep the wound clean and dry, apply bacitracin twice daily Return in 10 days for suture removal Return immediately if signs of infection develop: High fevers, increasing pain, redness, swelling, purulent discharge Follow up with the hand specialist within the next 2 days. Followup with primary care physician within the next 2 days Return if any other concerning symptoms develop Prescriptions: Acetaminophen [Acetaminophen Extra Strength] 500 mg PO Q4H PRN #30 tablet PRN Reason: pain/fever reduction Bacitracin OINT 1 applic TP BID #1 tube Cephalexin [Keflex] 500 mg PO QID #28 capsule Referrals: Edin High MD [Staff Provider] - Follow up with primary Hernando Campbell MD [Staff Provider] - Follow up with primary Lucy Alejandro MD [Medical Doctor] - Follow up with primary [employer] [Outside] - Follow up with primary Forms: [employer] (French), WORK NOTE
--- NOTE | 2019-03-28 13:17 | RAD ---
PROCEDURE: Left Hand Radiographs. HISTORY: laceration web spacing of 2nd-3rds fingers COMPARISON: None. TECHNIQUE: 3 views obtained. FINDINGS: BONES: Normal. No fracture. JOINTS: Normal. No osteoarthritic changes. SOFT TISSUES: Normal. OTHER FINDINGS: None. IMPRESSION: Normal left hand radiographs.
[2019-03-28 13:42] VITALS: BP 100/60; PULSE 94
[2019-03-28] MEDS ORDERED: Lidocaine 1% Inj (20ml) ONE (13:55)
[2019-03-28] MEDS ORDERED: Bacitracin 500 Units/gm Oint Foilpak UD ONE (14:36)
== END 2019-03-28 14:49 | disposition home or self-care (01) ==
LOC: ED 11:33
DX: S61.412A Laceration without foreign body of left hand, initial encounter (principal); W26.0XXA Contact with knife, initial encounter; E11.9 Type 2 diabetes mellitus without complications; I10 Essential (primary) hypertension; Z23 Encounter for immunization